=== PATIENT | male | born 1950 | race Caucasian/White ===

== ENCOUNTER 2017-01-11 12:16 | Inpatient (IN) | payer OTHER, MEDICARE ==
[~2017-01-11] VITALS: Ht 170.2 cm; Wt 69.8 kg
[2017-01-11] VITALS (9 sets, daily range): BP systolic 99–142; BP diastolic 62–84; PULSE 72–98; RESP 16–19; TEMP 98.4–98.7; O2SAT 96–100
[~2017-01-11 12:16] MED LIST: ALBU0.086 INH; ALBU8I INH; HYDR10SO PO; PROBCAP4 PO; ST JTAB PO; TAB-TAB PO; ZOFR4TAB3 SL
[2017-01-11] MEDS ORDERED: HYDR-3583 PO (12:36)
[2017-01-11] MEDS ORDERED: ASPI81TA11 PO (12:36)
[2017-01-11] MEDS ORDERED: B/P PILL PO (12:36)
[2017-01-11] MEDS ORDERED: ALBU0.63 NEB (12:36)
[2017-01-11] MEDS ORDERED: VENTAER INH (12:36)
[2017-01-11] MEDS ORDERED: SODIUM CHLORIDE 0.9% FLUSH 10 ML FLUSH IVF PRN (13:00)
[2017-01-11 13:03] LABS: AUTOMATED NEUTROPHIL # 4.1 TH/MM3 (1.8-7.7); BASOPHIL # 0.1 TH/MM3 (0-0.2); BASOPHIL % 0.9 % (0.0-2.0); EOSINOPHIL # 1.3 TH/MM3 (0-0.4); EOSINOPHIL % 16.4 % (0.0-4.0); HEMATOCRIT 36.4 % (39.0-51.0); HEMO FLAGS DIFF FINAL; LYMPH % 20.1 % (9.0-44.0); LYMPHOCYTE # 1.6 TH/MM3 (1.0-4.8); MEAN CELL VOLUME 89.9 FL (80.0-100.0); MEAN CORPUSCULAR HEMOGLOBIN 29.3 PG (27.0-34.0); MEAN CORPUSCULAR HGB CONC 32.5 % (32.0-36.0); MONO % 12.9 % (0.0-8.0); NEUT % 49.7 % (16.0-70.0); PLATELET COUNT 402 TH/MM3 (150-450); RED BLOOD COUNT 4.05 MIL/MM3 (4.50-5.90); RED CELL DISTRIBUTION WIDTH 13.9 % (11.6-17.2); WHITE BLOOD COUNT 8.1 TH/MM3 (4.0-11.0)
[2017-01-11 13:12] LABS: CHLORIDE 106 MEQ/L (98-107); SODIUM (NA) 141 MEQ/L (136-145)
[2017-01-11 13:15] LABS: ANION GAP 9 MEQ/L (5-15); BICARBONATE 25.9 MEQ/L (21.0-32.0); BLOOD UREA NITROGEN 13 MG/DL (7-18)
[2017-01-11 13:18] LABS: GLOMERULAR FILTRATION RATE 95 ML/MIN (>89)
[2017-01-11 13:19] LABS: POTASSIUM 4.7 MEQ/L (3.5-5.1)
--- NOTE | 2017-01-11 13:19 | PD ---
HPI Chief Complaint: Numbness/Tingling Time Seen by Provider: 12:33 Travel History International Travel<30 days: No Contact w/Intl Traveler<30days: No Traveled to known affect area: No History of Present Illness HPI The patient's 66 years old. He arrives with right arm weakness. It was first noticed 2 days ago. provides much of the history and notes the patient's quite stubborn and avoided coming to the ER until today. It seems as though the weakness has improved over the last several hours. He also notes right leg weakness at the time of assessment however had been walking over the past few days and including today. No difficulty with speech memory or mentation noted. Evidently he had a stroke in the past which had a complete spontaneous recovery. He denies drug or alcohol abuse. He smokes tobacco.patient takes a baby aspirin daily. PFSH Past Medical History Hx Anticoagulant Therapy: Yes (BABY ASA ) Cancer: Yes (PROSTATE, BLADDER) Cardiovascular Problems: Yes (HTN, CHOL LOOP RECORDER) COPD: Yes Cerebrovascular Accident: Yes (CVA) Diabetes: Yes (DIET CONTROLLED) Patient Takes Glucophage: No Diminished Hearing: No Herniated Disk: Yes Hypertension: Yes Musculoskeletal: Yes (CHRONIC BACK PAIN) Immunizations Current: Yes Radiation Therapy: Yes (PROSTATE) Tetanus Vaccination: < 5 Years Influenza Vaccination: No Past Surgical History Prostatectomy: Yes (BLADDER) Social History Alcohol Use: Yes (OCC) Tobacco Use: Yes (1/2 PPD) Substance Use: No Allergies-Medications (Allergen,Severity, Reaction): Coded Allergies: Lisinopril (Verified Allergy, Severe, 01/11/17) Reported Meds & Prescriptions Reported Meds & Active Scripts Active Reported Losartan (Losartan Potassium) 25 Mg Tab 25 Mg PO DAILY Hydrocodone-Acetaminophen 10-325 mg Tab 1 Tab PO Q8HR PRN Aspirin EC (Aspirin) 81 Mg Tabdr 81 Mg PO DAILY Albuterol Neb (Albuterol Sulfate) 0.63 Mg/3 Ml Neb 0.63 Mg NEB Q4HR NEB PRN Ventolin Hfa 18 GM Inh (Albuterol Sulfate) 90 Mcg/Act Aer 2 Puff INH Q4H PRN Review of Systems Except as stated in HPI: all other systems reviewed are Neg Physical Exam Narrative GENERAL: 66-year-old male well-nourished well-developed pleasant. SKIN: Focused skin assessment warm/dry. HEAD: Atraumatic. Normocephalic. EYES: Pupils equal and round. No scleral icterus. No injection or drainage. ENT: No nasal bleeding or discharge. Mucous membranes pink and moist. NECK: Trachea midline. No JVD. CARDIOVASCULAR: Regular rate and rhythm. No murmur appreciated. RESPIRATORY: No accessory muscle use. Clear to auscultation. Breath sounds equal bilaterally. GASTROINTESTINAL: Abdomen soft, non-tender, nondistended. Hepatic and splenic margins not palpable. MUSCULOSKELETAL: No obvious deformities. No clubbing. No cyanosis. No edema. NEUROLOGICAL: Speech is normal. The cranial nerves III through XII appear normal. Memory mentation appear normal. While elevating the right leg there is a very gradual drift downward however he is able to keep it elevated for longer than 10 seconds. The left leg does not drift. With assessment of the upper extremity motor function there is mild pronation and drift of the right side compared to the left. The handgrip is equal bilaterally. PSYCHIATRIC: Appropriate mood and affect; insight and judgment normal. Data Data Last Documented VS Vital Signs Date Time Temp Pulse Resp B/P Pulse Ox O2 Delivery O2 Flow Rate FiO2 01/11/17 15:04 80 18 124/76 98 Room Air 01/11/17 12:18 98.7 Vital signs reviewed Orders Electrocardiogram (01/11/17 12:51) Complete Blood Count With Diff (01/11/17 12:51) Basic Metabolic Panel (Bmp) (01/11/17 12:51) Drug Screen, Random Urine (01/11/17 12:51) Ct Brain W/O Iv Contrast(Rout) (01/11/17 12:51) Ecg Monitoring (01/11/17 12:51) Iv Access Insert/Monitor (01/11/17 12:51) Oximetry (01/11/17 12:51) Blood Glucose (01/11/17 12:51) Sodium Chloride 0.9% Flush (Ns Flush) (01/11/17 13:00) Mri Brain W/O Contrast (01/11/17 13:05) Mra Brain W/O Contrast (Cow) (01/11/17 13:05) Mra Carotids W Contrast (01/11/17 13:05) Alcohol (Ethanol) (01/11/17 12:40) Gadodiamide Pf Inj (Omniscan Pf Inj) (01/11/17 14:37) Clopidogrel (Plavix) (01/11/17 16:15) Consult Cardiology (01/11/17 ) Admit Order (Ed Use Only) (01/11/17 16:16) Labs Laboratory Tests Test 01/11/17 01/11/17 12:40 14:00 White Blood Count 8.1 TH/MM3 Red Blood Count 4.05 MIL/MM3 Hemoglobin 11.9 GM/DL Hematocrit 36.4 % Mean Corpuscular Volume 89.9 FL Mean Corpuscular Hemoglobin 29.3 PG Mean Corpuscular Hemoglobin 32.5 % Concent Red Cell Distribution Width 13.9 % Platelet Count 402 TH/MM3 Mean Platelet Volume 8.1 FL Neutrophils (%) (Auto) 49.7 % Lymphocytes (%) (Auto) 20.1 % Monocytes (%) (Auto) 12.9 % Eosinophils (%) (Auto) 16.4 % Basophils (%) (Auto) 0.9 % Neutrophils # (Auto) 4.1 TH/MM3 Lymphocytes # (Auto) 1.6 TH/MM3 Monocytes # (Auto) 1.0 TH/MM3 Eosinophils # (Auto) 1.3 TH/MM3 Basophils # (Auto) 0.1 TH/MM3 CBC Comment DIFF FINAL Differential Comment Sodium Level 141 MEQ/L Potassium Level 4.7 MEQ/L Chloride Level 106 MEQ/L Carbon Dioxide Level 25.9 MEQ/L Anion Gap 9 MEQ/L Blood Urea Nitrogen 13 MG/DL Creatinine 0.81 MG/DL Estimat Glomerular Filtration 95 ML/MIN Rate Random Glucose 136 MG/DL Calcium Level 9.4 MG/DL Ethyl Alcohol Level LESS THAN 3 MG/DL Urine Opiates Screen POS Urine Barbiturates Screen NEG Urine Amphetamines Screen NEG Urine Benzodiazepines Screen NEG Urine Cocaine Screen NEG Urine Cannabinoids Screen NEG MDM Medical Decision Making Medical Screen Exam Complete: Yes Emergency Medical Condition: Yes Medical Record Reviewed: Yes Differential Diagnosis Stroke, TIA, spinal stenosis and/or arthritic type disc disease Narrative Course Head CT reveals no acute disease EKG reveals a sinus rhythm of 81 with a left anterior fascicular block pattern CBC & BMP Diagram 01/11/17 12:40 Last 24 hours Impressions Neck Magnetic Resonance Angiography 01/11/17 8775 Signed Impressions: Service Date/Time: Wednesday, January 11, 2017 14:37 - CONCLUSION: 1. Moderate stenosis at the distal left carotid bulb at the proximal left internal carotid artery. It appears the lumen is narrowed by at least 50%%. 2. Possible stenosis at the origin of the right vertebral artery. 3. These areas could be better characterize with a CTA. Artis Rogers MD Head Magnetic Resonance Angiography 01/11/17 1303 Signed Impressions: Service Date/Time: Wednesday, January 11, 2017 14:37 - CONCLUSION: Normal examination. Artis Rogers MD Brain MRI 01/11/17 1305 Signed Impressions: Service Date/Time: Wednesday, January 11, 2017 14:37 - CONCLUSION: 1. Small area of acute infarction in the medial left frontoparietal region in the paraventricular area. 2. Atrophy. The ventricles appear to be dilated out of proportion to the sulcal widening which raises the possibility of normal pressure hydrocephalus. 3. Increased signal throughout the cerebral white matter likely related to diffuse small vessel ischemic demyelination change. Artis Rogers MD Head CT 01/11/17 1253 Signed Impressions: Service Date/Time: Wednesday, January 11, 2017 13:06 - CONCLUSION: Stable CT scan of the brain compared to 2014. Gwyn Noland MD d/w Dr Anne: admission w neuro and cardiology consult, start plavix. d/w Dr Rausch for [facility]. Critical Care Narrative Aggregate critical care time was 35 minutes. Time to perform other separately billable procedures was not included in the critical care time. My time did not include minutes spent treating any other patients simultaneously or on activities that did not directly contribute to the patient's treatment. The services I provided to this patient were to treat and/or prevent clinically significant deterioration that could result in: stroke, permanent neurologic injury I provided critical care services requiring my management, as noted below: Chart data review, documentation time, medication orders and management, vital sign assessments/reviewing monitor data, ordering and reviewing lab tests, ordering and interpreting/reviewing x-rays and diagnostic studies, care of the patient and discussion of the patient with the admitting physicians. Diagnosis Primary Impression: CVA (cerebral vascular accident) Qualified Code: I63.9 - Cerebrovascular accident (CVA), unspecified mechanism Admitting Information Admitting Physician Requests: Observation Zach Washburn MD Jan 11, 2017 13:19
--- NOTE | 2017-01-11 13:24 | RADRPT ---
EXAM DATE/TIME: 01/11/2017 13:06 [facility] COMPARISON: CT BRAIN W/O CONTRAST, February 16, 2015, 11:12. INDICATIONS : Right upper extremity weakness. RADIATION DOSE: 62.11 CTDIvol (mGy) MEDICAL HISTORY : Cerebrovascular disease. Chronic obstructive pulmonary disease. Carcinoma, prostate.Bladder cancer. H ypertension. Anticoagulant therapy. SURGICAL HISTORY : None. ENCOUNTER: Initial ACUITY: 2 days PAIN SCALE: 0/10 LOCATION: cranial TECHNIQUE: Multiple contiguous axial images were obtained of the head. Using automated exposure control and adj ustment of the mA and/or kV according to patient size, radiation dose was kept as low as reasonably a chievable to obtain optimal diagnostic quality images. DICOM format image data is available electro nically for review and comparison. FINDINGS: CEREBRUM: The ventricles are prominent but stable compared to 2014. There is bilateral cortical atrophy. There is stable chronic white matter changes.. No evidence of midline shift, mass lesion, hemorrhage or ac brenna infarction. No extra-axial fluid collections are seen. POSTERIOR FOSSA: The cerebellum and brainstem are intact. The 4th ventricle is midline. The cerebellopontine angle i s unremarkable. EXTRACRANIAL: The visualized portion of the orbits is intact. SKULL: The calvaria is intact. No evidence of skull fracture. CONCLUSION: Stable CT scan of the brain compared to 2014. Gwyn Noland MD on January 11, 2017 at 13:21 Board Certified Radiologist. This report was verified electronically.
[2017-01-11 14:19] LABS: AMPHETAMINE, URINE NEG (NEG); BARBITURATES, URINE NEG (NEG); COCAINE, URINE NEG (NEG)
[2017-01-11] MEDS ORDERED: GADODIAMIDE PF 287 MG/ML 20 ML VIAL (for RAD MRI) IV ONE (14:37)
[2017-01-11] MEDS ORDERED: LOSA25TA PO (14:37)
--- NOTE | 2017-01-11 15:16 | RADRPT ---
EXAM DATE/TIME: 01/11/2017 14:37 [facility] COMPARISON: CT BRAIN W/O CONTRAST, January 11, 2017, 13:06. INDICATIONS : Right sided weakness. MEDICAL HISTORY : Chronic obstructive pulmonary disease. Hypertension. Carcinoma, prostate. SURGICAL HISTORY : Prostatectomy. ENCOUNTER: Initial ACUITY: 1 day PAIN SCORE: 0/10 LOCATION: cranial TECHNIQUE: Multiplanar, multisequence MRI of the brain was performed without contrast. FINDINGS: CEREBRUM: The ventricles and cortical sulci are widened. It appears the ventricles are widened out of proportio n to the sulcal widening. There is a small 1 cm area of acute infarction seen in the left paraventric ular frontoparietal region. No evidence of midline shift, mass lesion, or hemorrhage. No extraaxial fluid collections are seen. The pituitary gland and suprasellar cistern are normal in configuration . WHITE MATTER: There is increased signal seen throughout the cerebral white matter. POSTERIOR FOSSA: The cerebellum and brainstem are intact. The 4th ventricle is midline. The cerebellopontine angle is unremarkable. The cerebellar tonsils are normal in position. DIFFUSION IMAGING: Again noted is the 1 cm area of acute infarction at the left paraventricular frontoparietal region. EXTRACRANIAL: The visualized portions of the orbits and paranasal sinuses are unremarkable. CONCLUSION: 1. Small area of acute infarction in the medial left frontoparietal region in the paraventricular are a. 2. Atrophy. The ventricles appear to be dilated out of proportion to the sulcal widening which raises the possibility of normal pressure hydrocephalus. 3. Increased signal throughout the cerebral white matter likely related to diffuse small vessel ische eric demyelination change. Artis Rogers MD on January 11, 2017 at 15:09 Board Certified Radiologist. This report was verified electronically.
--- NOTE | 2017-01-11 15:32 | RADRPT ---
EXAM DATE/TIME: 01/11/2017 14:37 [facility] COMPARISON: No previous studies available for comparison. INDICATIONS : Right sided weakness. MEDICAL HISTORY : Carcinoma, prostate. Chronic obstructive pulmonary disease. Hypertension. SURGICAL HISTORY : Prostatectomy. ENCOUNTER: Initial ACUITY: 1 day PAIN SCORE: 0/10 LOCATION: cranial Please note a normal MRA of the brain does not entirely exclude the possibility of a small aneurysm, nor the possibility of distal intracranial vessel disease. TECHNIQUE: 3D time of flight MRA was performed. Source images, multiplanar STS MIP, and 3D volume MIP reconstru ctions were reviewed. FINDINGS: There is excellent visualization of the major intracranial arteries out to the second-order branch ve ssels. There is no evidence for aneurysm, vessel truncation or stenosis, and no evidence for vascula r malformation. CONCLUSION: Normal examination. Artis Rogers MD on January 11, 2017 at 15:29 Board Certified Radiologist. This report was verified electronically.
--- NOTE | 2017-01-11 15:38 | RADRPT ---
EXAM DATE/TIME: 01/11/2017 14:37 [facility] COMPARISON: No previous studies available for comparison. INDICATIONS : Right side weakness. CONTRAST: 20 cc Omniscan (gadodiamide) IV MEDICAL HISTORY : Carcinoma, prostate. Chronic obstructive pulmonary disease. Hypertension. SURGICAL HISTORY : Prostatectomy. ENCOUNTER: Initial ACUITY: 1 day PAIN SCORE: 0/10 LOCATION: cranial Percent stenosis is calculated using the diameter of the stenotic region over the diameter of the nor mal distal internal carotid artery. TECHNIQUE: Bolus infused MRA of the extracranial circulation was performed using a neurovascular coil. Post pro cessing was performed including rotating subvolume maximum intensity projections of each carotid arpita ry, rotating full volume maximum intensity projections of both carotid arteries, sagittal and coronal sliding thin slab reformations of each carotid artery, and left oblique sliding thin slab reformatio n through the aortic arch to include the origin of the arch branch vessels. FINDINGS: AORTIC ARCH: There is a three vessel origin of the great vessels from the aorta. No evidence of ostial narrowing. RIGHT CAROTID: The common carotid artery is intact. The carotid bulb has a normal configuration without ulceration or narrowing. The internal carotid artery lumen is smooth without stenosis. The external carotid ar álvaro is intact. LEFT CAROTID: The common carotid artery is intact. There appears to be a moderate stenosis at the distal carotid b ulb region. The remaining aspect of the left internal carotid artery appears normal. The external car otid artery is intact. VERTEBRALS: The vertebral arteries have a symmetric diameter. No signal is seen at the origin of the right verte bral artery raising the possibility of stenosis in this region. This area is susceptibility to artifa ct however. CONCLUSION: 1. Moderate stenosis at the distal left carotid bulb at the proximal left internal carotid artery. It appears the lumen is narrowed by at least 50%. 2. Possible stenosis at the origin of the right vertebral artery. 3. These areas could be better characterize with a CTA. Artis Rogers MD on January 11, 2017 at 15:30 Board Certified Radiologist. This report was verified electronically.
[2017-01-11] MEDS ORDERED: CLOPIDOGREL 75 MG TAB PO ONE (16:15)
[2017-01-11] MEDS ORDERED: DEXTROSE 50% IN WATER 50 ML VIAL(D50) IV PUSH PRN (16:30)
[2017-01-11] MEDS ORDERED: RESP: ALBUTEROL 2.5 MG/IPRATROPIUM 0.5 MG NEB (PRN) NEB (16:30)
[2017-01-11] MEDS ORDERED: SODIUM CHLORIDE 0.9% FLUSH 5 ML FLUSH IV FLUSH PRN (16:30)
[2017-01-11] MEDS ORDERED: ENALAPRILAT 1.25 MG/ML VIAL IV PRN (16:30)
--- NOTE | 2017-01-11 16:36 | HHI.HP ---
[facility] Diagnosis CVA, ?Arrhythmia Diagnoses: (1) CVA (cerebral vascular accident) (2) Diabetes mellitus, type 2 (3) Hypertension Chief Complaint: Right arm weakness Travel History International Travel<30 Days: No Contact w/Intl Traveler <30 Da: No Traveled to Known Affected Are: No History of Present Illness 66-year-old male with a history of diabetes type 2, hypertension, prior history of CVA came to the ED for evaluation of 2 day history of right arm weakness slight right lower extremity weakness and some slurring speech. Patient states, yesterday when he woke up from sleep around 6 AM his right arm was noticed to be heavy and numbed, which patient was unable to lift. However patient states this improved this morning after he woke up, but it is still weaker than the left one. He was also noted per his 's account to have a funny speech. He also reported some right lower extremity weakness. Patient has an implanted loop recorder, states several years ago he was having episode of syncope. Otherwise currently denies any chest pain or shortness of breath. Brain MRI was abnormal Review of Systems Except as stated in HPI: all other systems reviewed are Neg Past Family Social History Past Medical History Cancer: Yes (PROSTATE, BLADDER) Cardiovascular Problems: Yes (HTN, CHOL LOOP RECORDER) COPD: Yes Cerebrovascular Accident: Yes (CVA) Diabetes: Yes (DIET CONTROLLED) Herniated Disk: Yes Hypertension: Yes Musculoskeletal: Yes (CHRONIC BACK PAIN) Radiation Therapy: Yes (PROSTATE) Past Surgical History Prostatectomy Reported Medications [B/P Pill] 1 Tab PO DAILY Hydrocodone-Acetaminophen 10-325 mg Tab 1 Tab PO Q8HR PRN Aspirin EC (Aspirin) 81 Mg Tabdr 81 Mg PO DAILY Albuterol Neb (Albuterol Sulfate) 0.63 Mg/3 Ml Neb 0.63 Mg NEB Q4HR NEB PRN Ventolin Hfa 18 GM Inh (Albuterol Sulfate) 90 Mcg/Act Aer 2 Puff INH Q4H PRN Allergies: Coded Allergies: Lisinopril (Verified Allergy, Severe, 01/11/17) Family History History positive for hypertension, diabetes Social History Alcohol Use: Yes (OCC) Tobacco Use: Yes (1/2 PPD) Substance Use: No Physical Exam Vital Signs Vital Signs Date Time Temp Pulse Resp B/P Pulse Ox O2 Delivery O2 Flow Rate FiO2 01/11/17 16:23 78 18 142/84 97 Room Air 01/11/17 15:04 80 18 124/76 98 Room Air 01/11/17 14:03 74 18 99/62 98 Room Air 01/11/17 13:01 97 Room Air 01/11/17 12:21 91 100 Room Air 01/11/17 12:18 98.7 98 16 122/75 100 Physical Exam GENERAL: This is a well-nourished, well-developed patient, in no apparent distress. SKIN: No rashes, ecchymoses or lesions. Cool and dry. HEAD: Atraumatic. Normocephalic. No temporal or scalp tenderness. EYES: Pupils equal round and reactive. Extraocular motions intact. No scleral icterus. No injection or drainage. ENT: Nose without bleeding, purulent drainage or septal hematoma. Throat without erythema, tonsillar hypertrophy or exudate. Uvula midline. Airway patent. NECK: Trachea midline. No JVD or lymphadenopathy. Supple, nontender, no meningeal signs. CARDIOVASCULAR: Regular rate and rhythm without murmurs, gallops, or rubs. RESPIRATORY: Clear to auscultation. Breath sounds equal bilaterally. No wheezes , rales, or rhonchi. GASTROINTESTINAL: Abdomen soft, non-tender, nondistended. No hepato-splenomegaly , or palpable masses. No guarding. MUSCULOSKELETAL: Extremities without clubbing, cyanosis, or edema. No joint tenderness, effusion, or edema noted. No calf tenderness. Negative Homans sign bilaterally. NEUROLOGICAL: Awake and alert. Cranial nerves II through XII intact. Motor and sensory grossly within normal limits. 3/5 RUE, 4/5 RLE, 5/5 LUE and LLE. Laboratory Laboratory Tests Test 01/11/17 01/11/17 12:40 14:00 White Blood Count 8.1 Red Blood Count 4.05 Hemoglobin 11.9 Hematocrit 36.4 Mean Corpuscular Volume 89.9 Mean Corpuscular Hemoglobin 29.3 Mean Corpuscular Hemoglobin 32.5 Concent Red Cell Distribution Width 13.9 Platelet Count 402 Mean Platelet Volume 8.1 Neutrophils (%) (Auto) 49.7 Lymphocytes (%) (Auto) 20.1 Monocytes (%) (Auto) 12.9 Eosinophils (%) (Auto) 16.4 Basophils (%) (Auto) 0.9 Neutrophils # (Auto) 4.1 Lymphocytes # (Auto) 1.6 Monocytes # (Auto) 1.0 Eosinophils # (Auto) 1.3 Basophils # (Auto) 0.1 CBC Comment DIFF FINAL Differential Comment Sodium Level 141 Potassium Level 4.7 Chloride Level 106 Carbon Dioxide Level 25.9 Anion Gap 9 Blood Urea Nitrogen 13 Creatinine 0.81 Estimat Glomerular Filtration 95 Rate Random Glucose 136 Calcium Level 9.4 Ethyl Alcohol Level LESS THAN 3 Urine Opiates Screen POS Urine Barbiturates Screen NEG Urine Amphetamines Screen NEG Urine Benzodiazepines Screen NEG Urine Cocaine Screen NEG Urine Cannabinoids Screen NEG Result Diagram: 01/11/17 1240 01/11/17 1240 Imaging Last Impressions Neck Magnetic Resonance Angiography 01/11/17 1305 Signed Impressions: Service Date/Time: Wednesday, January 11, 2017 14:37 - CONCLUSION: 1. Moderate stenosis at the distal left carotid bulb at the proximal left internal carotid artery. It appears the lumen is narrowed by at least 50%%. 2. Possible stenosis at the origin of the right vertebral artery. 3. These areas could be better characterize with a CTA. Artis Rogers MD Head Magnetic Resonance Angiography 01/11/17 1305 Signed Impressions: Service Date/Time: Wednesday, January 11, 2017 14:37 - CONCLUSION: Normal examination. Artis Rogers MD Brain MRI 01/11/17 1305 Signed Impressions: Service Date/Time: Wednesday, January 11, 2017 14:37 - CONCLUSION: 1. Small area of acute infarction in the medial left frontoparietal region in the paraventricular area. 2. Atrophy. The ventricles appear to be dilated out of proportion to the sulcal widening which raises the possibility of normal pressure hydrocephalus. 3. Increased signal throughout the cerebral white matter likely related to diffuse small vessel ischemic demyelination change. Artis Rogers MD Head CT 01/11/17 1251 Signed Impressions: Service Date/Time: Wednesday, January 11, 2017 13:06 - CONCLUSION: Stable CT scan of the brain compared to 2015. Gwyn Noland MD Assessment and Plan Problem List: (1) CVA (cerebral vascular accident) ICD Code: I63.9 Status: Acute Assessment and Plan 66-year-old man with Acute CVA: Treatment per stroke protocol -Patient is outside of window zone for treatment with TPA -Continue with aspirin -Start statin therapy -NIHSS, Neuro checks, Monitor on telemetry -PT/OT/ST evaluations, consult rehab medicine -allow permissive HTN, IV Vasotec and IV labetalol if SBP >220 -Check lipid profile and HgbA1c -Check carotid U/S -Head CT 01/11/17 noted and review by me and Stable CT scan of the brain compared to 2015 -Brain MRI 01/11/17 noted and review by me with finding of Small area of acute infarction in the medial left frontoparietal region in the paraventricular area. -Brain MRA 01/11/17 noted and reviewed by me with normal examination -Neck MRA 01/11/17 noted and review by me with finding of Moderate stenosis at the distal left carotid bulb at the proximal left internal carotid artery. Possible stenosis at the origin of the right vertebral artery. -Check echocardiogram -Neurology consulted History of hypertension: We will allow for permissive hypertension History of arrhythmias ,syncope Cardiology consultation pending as patient with history of implanted loop recorder 2-D echo pending Nicotinic dependence: Counseled to quit, place nicotine patch DVT prophylaxis: Bilateral SCDs GI prophylaxis: PPI Code Status Full code Discussed Condition With Patient, ED physician Physician Certification 2 Midnight Certification Type: Admission for Inpatient Services Order for Inpatient Services The services are ordered in accordance with Medicare regulations or non- Medicare payer requirements, as applicable. In the case of services not specified as inpatient-only, they are appropriately provided as inpatient services in accordance with the 2-midnight benchmark. Estimated LOS (days): 2 days is the estimated time the patient will need to remain in the hospital, assuming treatment plan goals are met and no additional complications. Post-Hospital Plan: Not yet determined Problem Qualifiers (1) CVA (cerebral vascular accident): Qualified Code: I63.9 - Cerebrovascular accident (CVA), unspecified mechanism Roshan Rausch MD Jan 11, 2017 16:36
[2017-01-11] MEDS ORDERED: GLUCAGON 1 MG/ML VIAL OTHER PRN (16:45)
[2017-01-11] MEDS ORDERED: DEXTROSE 50% IN WATER 50 ML VIAL(D50) IV PRN (16:45)
[2017-01-11] MEDS: ENOXAPARIN SODIUM 30 MG/0.3 ML SYRINGE SQ SCH (18:50)
[2017-01-11] MEDS: NICOTINE 21 MG/24 HR PATCH T-DERMAL SCH (18:50)
[2017-01-11] MEDS: SODIUM CHLORIDE 0.9% FLUSH 5 ML FLUSH IV FLUSH SCH (21:00)
[2017-01-11] MEDS: INSULIN ASPART SUPPLEMENTAL SCALE SQ SCH (21:00)
[2017-01-11] MEDS: REMOVE OLD PATCH T-DERMAL SCH (21:00)
[2017-01-11] MEDS: ATORVASTATIN 10 MG TAB PO SCH (21:36)
[2017-01-12] VITALS (9 sets, daily range): BP systolic 144–164; BP diastolic 80–97; PULSE 69–78; RESP 18–20; TEMP 95.9–97.6; O2SAT 93–99
[2017-01-12] MEDS: INSULIN ASPART SUPPLEMENTAL SCALE SQ SCH ×4 (05:49→20:25)
[2017-01-12 06:16] LABS: ALKALINE PHOSPHATASE 59 U/L (45-117); ALT (GPT) 38 U/L (12-78); ANION GAP 8 MEQ/L (5-15); AST (GOT) 30 U/L (15-37); BICARBONATE 26.4 MEQ/L (21.0-32.0); BLOOD UREA NITROGEN 13 MG/DL (7-18); CHLORIDE 110 MEQ/L (98-107); GLOMERULAR FILTRATION RATE 111 ML/MIN (>89); POTASSIUM 3.6 MEQ/L (3.5-5.1); SODIUM (NA) 144 MEQ/L (136-145); TOTAL BILIRUBIN ADULT 0.4 MG/DL (0.2-1.0)
[2017-01-12] MEDS: ASPIRIN 325 MG TAB PO SCH (08:19)
[2017-01-12] MEDS: SODIUM CHLORIDE 0.9% FLUSH 5 ML FLUSH IV FLUSH SCH ×2 (08:20→20:15)
[2017-01-12] MEDS: NICOTINE 21 MG/24 HR PATCH T-DERMAL SCH (08:20)
[2017-01-12 09:23] LABS: HDL CHOLESTEROL 64.5 MG/DL (40.0-60.0); LDL CHOLESTEROL 72 MG/DL (0-99)
--- NOTE | 2017-01-12 11:33 | HHI.PR ---
Subjective Remarks Follow-up CVA 01/12/17-patient seen and examined, reports improvement of right upper extremity weakness and numbness or denies any acute event overnight. Afebrile. Taking by mouth without any competition nausea and vomiting. Objective Vitals Vital Signs Date Time Temp Pulse Resp B/P Pulse Ox O2 Delivery O2 Flow Rate FiO2 01/12/17 09:18 95 21 01/12/17 08:03 96.1 73 19 164/97 95 01/12/17 05:20 97.6 78 18 144/91 93 01/12/17 00:00 97.4 72 20 149/89 96 01/11/17 21:00 98 21 01/11/17 21:00 79 01/11/17 20:00 98.4 76 19 129/79 96 01/11/17 17:38 100 21 01/11/17 17:03 72 16 119/73 100 Room Air 01/11/17 16:23 78 18 142/84 97 Room Air 01/11/17 15:04 80 18 124/76 98 Room Air 01/11/17 14:03 74 18 99/62 98 Room Air 01/11/17 13:01 97 Room Air 01/11/17 12:21 91 100 Room Air 01/11/17 12:18 98.7 98 16 122/75 100 I/O 01/11/17 01/11/17 01/11/17 01/12/17 01/12/17 01/12/17 06:59 14:59 22:59 06:59 14:59 22:59 Intake Total 240 ml Output Total 100 ml Balance -100 ml 240 ml Intake Oral 240 ml Output Stool Total 100 ml # Voids 2 2 # Bowel Movements 0 Result Diagram: 01/11/17 1240 01/12/17 0520 Imaging Last Impressions Neck Magnetic Resonance Angiography 01/11/17 1305 Signed Impressions: Service Date/Time: Wednesday, January 11, 2017 14:37 - CONCLUSION: 1. Moderate stenosis at the distal left carotid bulb at the proximal left internal carotid artery. It appears the lumen is narrowed by at least 50%%. 2. Possible stenosis at the origin of the right vertebral artery. 3. These areas could be better characterize with a CTA. Artis Rogers MD Head Magnetic Resonance Angiography 01/11/17 1301 Signed Impressions: Service Date/Time: Wednesday, January 11, 2017 14:37 - CONCLUSION: Normal examination. Artis Rogers MD Brain MRI 01/11/17 1305 Signed Impressions: Service Date/Time: Wednesday, January 11, 2017 14:37 - CONCLUSION: 1. Small area of acute infarction in the medial left frontoparietal region in the paraventricular area. 2. Atrophy. The ventricles appear to be dilated out of proportion to the sulcal widening which raises the possibility of normal pressure hydrocephalus. 3. Increased signal throughout the cerebral white matter likely related to diffuse small vessel ischemic demyelination change. Artis Rogers MD Head CT 01/11/17 1251 Signed Impressions: Service Date/Time: Wednesday, January 11, 2017 13:06 - CONCLUSION: Stable CT scan of the brain compared to 2014. Gwyn Noland MD Objective Remarks GENERAL: NAD SKIN: Warm and dry. HEAD: Normocephalic. EYES: No scleral icterus. No injection or drainage. NECK: Supple, trachea midline. No JVD or lymphadenopathy. CARDIOVASCULAR: Regular rate and rhythm without murmurs, gallops, or rubs. RESPIRATORY: Breath sounds equal bilaterally. No accessory muscle use. GASTROINTESTINAL: Abdomen soft, non-tender, nondistended. MUSCULOSKELETAL: No cyanosis, or edema. 4/5 RUE, 5/5 RLE; 5/5 LUE, LLE BACK: Nontender without obvious deformity. No CVA tenderness. A/P Problem List: (1) CVA (cerebral vascular accident) ICD Code: I63.9 Status: Acute (2) Diabetes mellitus, type 2 ICD Code: E11.9 Status: Acute (3) Hypertension ICD Code: I10 Status: Acute Assessment and Plan 66-year-old man with Acute CVA: Treatment per stroke protocol -Patient on admission was outside of window zone for treatment with TPA -Continue with aspirin -Continue statin therapy -NIHSS, Neuro checks, Monitor on telemetry -PT/OT/ST evaluations, consult rehab medicine -allow permissive HTN, IV Vasotec and IV labetalol if SBP >220 -LDL 72 and HgbA1c pending -Check carotid U/S -Head CT 01/11/17 noted and review by me and Stable CT scan of the brain compared to 2014 -Brain MRI 01/11/17 noted and review by me with finding of Small area of acute infarction in the medial left frontoparietal region in the paraventricular area. -Brain MRA 01/11/17 noted and reviewed by me with normal examination -Neck MRA 01/11/17 noted and review by me with finding of Moderate stenosis at the distal left carotid bulb at the proximal left internal carotid artery. Possible stenosis at the origin of the right vertebral artery. -Check echocardiogram -Neurology consultation pending History of hypertension: Continue with permissive hypertension History of arrhythmias ,syncope Cardiology consultation pending as patient with history of implanted loop recorder 2-D echo pending Nicotinic dependence: Counseled to quit, tx with nicotine patch DVT prophylaxis: Bilateral SCDs GI prophylaxis: PPI Problem Qualifiers (1) CVA (cerebral vascular accident): Qualified Code: I63.9 - Cerebrovascular accident (CVA), unspecified mechanism Roshan Rausch MD Jan 12, 2017 11:33
--- NOTE | 2017-01-12 11:37 | ECHRPT ---
Indication: cva/tia CONCLUSIONS The left ventricular systolic function is severely reduced with an estimated ejection fraction in th e range of 30-35%. Global hypokinesis. There is assymetric septal hypertrophy. Mild mitral valve regurgitation. BP: / HR: Rhythm: MEASUREMENTS (Male / Female) Normal Values Technical Quality:Technically difficult study 2D ECHO LV Diastolic Diameter PLAX 5.2 cm 4.2 - 5.9 / 3.9 - 5.3 cm LV Systolic Diameter PLAX 4.6 cm IVS Diastolic Thickness 1.5 cm 0.6 - 1.0 / 0.6 - 0.9 cm LVPW Diastolic Thickness 1.0 cm 0.6 - 1.0 / 0.6 - 0.9 cm LV Relative Wall Thickness 0.5 RV Internal Dim ED PLAX 3.2 cm M-MODE Aortic Root Diameter MM 3.3 cm LA Systolic Diameter MM 3.3 cm LA Ao Ratio MM 1.0 AV Cusp Separation MM 2.0 cm DOPPLER Mitral E Point Velocity 35.5 cm/s Mitral A Point Velocity 59.7 cm/s Mitral E to A Ratio 0.6 LV E' Lateral Velocity 4.1 cm/s Mitral E to LV E' Lateral Ratio 8.7 LV E' Septal Velocity 5.3 cm/s Mitral E to LV E' Septal Ratio 6.7 FINDINGS LEFT VENTRICLE Normal left ventricular size. There is assymetric septal hypertrophy. The left ventricular systolic function is severely reduced with an estimated ejection fraction in th e range of 30-35%. Global hypokinesis. RIGHT VENTRICLE Normal right ventricular size and systolic function. LEFT ATRIUM The left atrial size is normal. RIGHT ATRIUM The right atrial size is normal. ATRIAL SEPTUM The interatrial septum not well visualized. AORTA The aortic root and proximal ascending aorta are normal in size on limited imaging. MITRAL VALVE Structurally normal mitral valve. Mild mitral valve regurgitation. AORTIC VALVE Trileaflet aortic valve. No aortic valve regurgitation. TRICUSPID VALVE Structurally normal tricuspid valve. There is trace tricuspid valve regurgitation. PULMONARY VALVE The pulmonary valve is not well visualized. VESSELS IVC 2.3 PERICARDIUM No pericardial effusion. Lukasz Washburn DO (Electronically Signed) Final Date:12 January 2017 11:36
--- NOTE | 2017-01-12 11:57 | MB ---
cc: LUKASZ FERRELL DO DATE OF CONSULTATION: January 12, 2017 REASON FOR CONSULTATION CVA, possible arrhythmia. HISTORY OF PRESENT ILLNESS Bret Simon is a pleasant 66-year-old male who presented to [facility] due to two day history of right arm weakness, slight right lower extremity weakness and some slurred speech. The patient states that he woke up the day before arriving to the emergency room with right arm heaviness and numbness for which the patient was unable to lift his arm. He also states that during this he noticed some right leg weakness. Per his 's account he was unable to speak very well. He states that this steadily improved over the morning. He decided that he should come to the emergency room. On arrival he was worked up for a possible CVA and was out of the time range for possible TPA. In seeing him today he states that he feels fine, denying chest pain, shortness of breath or focal deficits. He states that his right arm is still slightly weak but overall his right leg is back to normal. Lastly, he states that he had a loop recorder [facility] few years ago as he had a few episodes of syncope. He states that this has been followed regularly every 6 months and he was told that he had an irregular heart rate with the top chamber beating more than the bottom chamber. He was never discussed with previously about anticoagulation other than a baby aspirin. PAST MEDICAL HISTORY 1. Prostate cancer. 2. Bladder cancer. 3. Hypertension. 4. Hyperlipidemia. 5. COPD. 6. History of a CVA (the patient had a previous left-sided CVA believed to be around 10 years ago per the patient and did not come to the hospital for). 7. Diet-controlled diabetes. PAST SURGICAL HISTORY Prostatectomy. ALLERGIES LISINOPRIL. MEDICATIONS 1. Losartan 25 mg daily. 2. Albuterol 2 puffs every 4 hours as needed. 3. Aspirin 81 mg daily. 4. Hydrocodone / acetaminophen 10/325 mg every 8 hours as needed for pain. FAMILY HISTORY Denies premature coronary artery disease or sudden cardiac within the family. SOCIAL HISTORY Denies substance abuse. Positive for occasional alcohol. Does smoke half a pack of cigarettes a day. REVIEW OF SYSTEMS 14-systems were reviewed including osteopathic pertinent positives and negatives above, otherwise negative. PHYSICAL EXAMINATION VITAL SIGNS: Temperature 96.1, heart rate 73, blood pressure 164/97, respirations 20, pulse ox 95% on room air. GENERAL: The patient appears well, in no acute distress, alert awake and oriented x3. HEENT: Extraocular muscles intact. Mucous membranes moist. NECK: Supple. No JVD at 45 degrees. No carotid bruits heard bilaterally. Carotid upstroke is brisk in nature. HEART: Heart is regular rate and rhythm. Positive first and second heart sounds with no murmurs, gallops or rubs. LUNGS: Clear to auscultation bilaterally. No wheezes, rales or rhonchi. ABDOMEN: Soft, nontender, nondistended. No organomegaly noted. EXTREMITIES: Show no clubbing, cyanosis or edema. NEUROLOGIC: The patient has mild weakness in his right arm otherwise no focal deficits. SKIN: Warm, dry and intact. OSTEOPATHIC: No kyphoscoliosis, lordosis or paraspinal tender points. LABORATORY FINDINGS Hemoglobin 11.9, hematocrit 36.4, platelets 402. Potassium 3.6, BUN 13, creatinine 0.71, total cholesterol 154, LDL 72, HDL 64.5, triglycerides 86. ELECTROCARDIOGRAM Electrocardiogram (January 11, 2017 at 1301) sinus rhythm, left anterior fascicular block, no acute ST-T wave changes. IMPRESSION 1. Acute CVA with mild residual right upper extremity weakness. 2. History of hypertension. 3. History of possible arrhythmias with syncope for which a loop recorder was placed. 4. Tobacco abuse. RECOMMENDATIONS 1. Mr. Simon appears to have presented with acute CVA for which he has mostly resolved his symptoms other than mild right upper extremity weakness. 2. I agree with consulting neurology for their further recommendations for his CVA. 3. As far as his loop recorder goes, he did have an MRI which possibly could erase the data, I did ask the technical sales representative from [employer] to look back at old data from his previous interrogations as well as interrogate it and see if any arrhythmias were noted. Per the patient, it sounds as if he does have some kind of SVT which may be atrial fibrillation in nature although, it has never been discussed with him about consideration of anticoagulation which I find interesting. At this time we will hold off on anticoagulation as I have no definitive showing of atrial fibrillation. 4. Will check a 2-D echo to look at his overall left ventricular function, cardiac structure and possible valvulopathies. 5. I did speak to him for greater than 3 minutes about tobacco cessation which he states that he will at least consider. 6. Overall from a preventative standpoint, he should undergo a pharmacologic nuclear stress test which can be done outpatient with his [facility]. Thank you for allowing me to see Bret Simon, if there are any questions please do not hesitate to call. Lukasz Ferrell DO VGP/TLL /10:57 AM /11:41 AM
[2017-01-12 15:20] LABS: HEMOGLOBIN A1a 1.4 %; HEMOGLOBIN A1b 1.4 %; HEMOGLOBIN Ao 86.1 %; HEMOGLOBIN LA1C 1.9 %; HEMOGLOBIN P3 3.3 %
--- NOTE | 2017-01-12 16:55 | PD.CARD.PN ---
Assessment and Plan Assessment and Plan Spoke to the front office representative from [employer] who interrogated the Loop Recorder. No episodes of any arrhythmias since being placed(2014) including atrial fibrillation. Please see consultation for further information. Lukasz Washburn DO Jan 12, 2017 16:55
[2017-01-12] MEDS: ENOXAPARIN SODIUM 30 MG/0.3 ML SYRINGE SQ SCH (16:57)
[2017-01-12] MEDS: ATORVASTATIN 10 MG TAB PO SCH (20:14)
[2017-01-12] MEDS: REMOVE OLD PATCH T-DERMAL SCH (20:15)
[2017-01-12] MEDS ORDERED: IOHEXOL 350 MG/ML 10 ML VIAL (for RAD DIAG) IV ONE (21:21)
--- NOTE | 2017-01-12 21:49 | MB ---
cc: HARMONY MELGOZA MD DATE OF CONSULTATION 01/12/2017 REASON FOR CONSULTATION Stroke. HISTORY OF PRESENT ILLNESS Mr. Simon is a 66-year-old male with past medical history of diabetes, hypertension, prior history of stroke with left-sided weakness that has resolved in 4 days duration 9 years ago and history of, "blackouts". The patient presented to the [facility] Emergency Room for evaluation of a two day history of right arm weakness with slurred speech and slight right lower extremity weakness. He noticed that his arm, right arm was heavy and numb and he was unable to lift. He denies similar episode in the past. He states that there is some improvement but he still not back to himself. He denies headache, double vision, blurred vision, speech difficulty, drooping of the face or visual field defect. The patient has an implanted loop recorder for two years. The patient is under a lot of stresses. He takes care of his sick mother at home, when he is through his who is at the bedside states, that he does not take care of his health. REVIEW OF SYSTEMS A 12-point review of systems is negative except for what is stated in the HPI. PAST MEDICAL HISTORY 1. Prostatic cancer. 2. Hypertension. 3. Seizure. 4. He had a history of remote stroke of the left side of the upper and lower extremity that was resolved in 4 days 9 years ago. 5. Diabetes. 6. Chronic backache. 7. Hypertension. 8. Prostate cancer. 9. Cardiovascular problems / loop recorder is implanted. PAST SURGICAL HISTORY Prostatectomy. MEDICATIONS 1. Aspirin 81 mg daily. 2. Ventolin. 3. Hydrocodone / acetaminophen 10/325. ALLERGIES LISINOPRIL. FAMILY HISTORY Hypertension and diabetes. SOCIAL HISTORY Occasional alcohol use. Smokes half pack a day. Denies substance abuse. PHYSICAL EXAMINATION GENERAL: Awake, alert, oriented, not in acute distress. HEENT: Atraumatic, normocephalic. Intact hearing. Intact vision. NECK: Trachea in the midline. No JVD. No signs of meningeal irritation. CARDIOVASCULAR: Regular rate and rhythm without murmurs. RESPIRATORY: Clear to auscultation. Scattered wheezes. GASTROINTESTINAL: Soft abdomen, not distended. MUSCULOSKELETAL: Without clubbing, cyanosis or edema. Moves extremities. NEUROLOGIC: Awake, alert, oriented to time, person and place. No dysarthria. No dysphagia. Cranial nerves II-XII are grossly intact. No facial asymmetry. Pupils are equally reacting to light and accommodation. No diplopia. No intact external ocular motility. Motor examination, right upper extremity 5-/5 right shoulder abduction, elbow extension and wrist extension. 5-/5 right hip flexion and foot dorsiflexion. Otherwise grade 5/5 throughout. No abnormal movements. Normal tone. Sensation is intact bilateral, symmetrical to light touch and temperature. Reflexes 1+ bilateral and symmetrical. Plantars are bilaterally downgoing. Cerebellar signs are intact bilateral and symmetrical [id number] and [id number]. Stance is normal. No ataxia. Slow tandem walk. Mild wide-based gait. LABORATORY DATA White blood cells 8.1, hemoglobin 11.9, platelet count 402. Sodium 144, chloride 110, potassium 3.6, BUN 13, creatinine 0.71 HDL 6.54, LDL 72. Triglyceride 86. IMAGING - Head CT scan without contrast, stable CT compared to 2015. Ventricles are prominent but stable. Bilateral cortical atrophy. Stable chronic white matter changes. - Brain MRI without contrast revealed small area of acute infarction in the medial left frontoparietal region and the periventricular area. Atrophy. The ventricles appear to be dilated out of proportion to the sulcal widening which raises the possibility of normal-pressure hydrocephalus. Increased signal throughout the cerebral white matter likely related to diffuse small vessel ischemic demyelination change. - I reviewed the MRI brain imaging and it revealed extensive white matter, paraventricular white matter disease with dilated ventricles. - Head MRA was reported as normal. - Neck MRA revealed moderate stenosis at the distal left carotid bulb of the proximal left ICA. It appears the lumen is narrowed by at least 50%. Possible stenosis at origin of the right vertebral artery. These areas could be better characterized with a CTA. DIAGNOSTIC IMPRESSION 1. Acute ischemic strokes. 2. Hypertension. 3. Diabetes. 4. History of prostate cancer. 5. Hypercholesteremia. 6. History of arrhythmia / syncope / blackouts implanted loop recorder. 7. Nicotine dependence. PLAN 1. Neurological checks q.4h. 2. Aspirin 325 milligrams daily. 3. CTA of the neck with contrast. 4. Nicotine patch. 5. No need for permissive hypertension. 6. Echo. 7. Telemetry. 8. Consult cardiology for evaluation of history of arrhythmia and implanted loop recorder. 9. DVT prophylaxis. 10. GI prophylaxis. 11. PT OT recommendations are appreciated. Thank you for the opportunity to participate in the care of your patient. MD YULISA Cabezas/KK /4:08 PM /9:21 PM . MTDLeno
[2017-01-12] MEDS ORDERED: ACETAMINOPHEN/HYDROcodone 325 MG/5 MG TAB PO ONE (22:30)
[2017-01-13] VITALS (8 sets, daily range): BP systolic 133–161; BP diastolic 81–94; PULSE 62–84; RESP 18–20; TEMP 95.3–97; O2SAT 96–100
--- NOTE | 2017-01-13 00:26 | RADRPT ---
EXAM DATE/TIME: 01/12/2017 20:57 [facility] COMPARISON: No previous studies available for comparison. INDICATIONS : Right arm and leg weakness. Abnormal MRA carotids. evaluate right vertebral artery. IV CONTRAST: 85 cc Omnipaque 350 (iohexol) IV RADIATION DOSE: 42.95 CTDIvol (mGy) MEDICAL HISTORY : Cerebrovascular disease. Chronic obstructive pulmonary disease. Carcinoma, prostate.Bladder cancer. H ypertension. Anticoagulant therapy. SURGICAL HISTORY : Prostatectomy. ENCOUNTER: Initial ACUITY: 3 days PAIN SCALE: 0/10 LOCATION: Right neck Elevated flow velocities and ICA/CCA ratios have been found to correlate with increased degrees of vessel stenosis, calculated as percentage of diameter relative to a normal segment of distal ICA/CCA. TECHNIQUE: Volumetric scanning was performed using a multirow detector CT scanner. The data was post processed with a variety of visualization algorithms including full-volume maximum intensity projection, multip lanar sliding thin-slab reformation, curved-planar reformation, and surface-rendering techniques. Us ing automated exposure control and adjustment of the mA and/or kV according to patient size, radiatio n dose was kept as low as reasonably achievable to obtain optimal diagnostic quality images. DICOM f ormat image data is available electronically for review and comparison. FINDINGS: AORTIC ARCH: There is a three-vessel origin of the great vessels from the aorta. There is calcification in aortic arch at the origin of all 3 vessels. No significant ostial stenosis.. RIGHT CAROTID: The common carotid artery is intact. The carotid bulb has a normal configuration without ulceration o r narrowing. There is some minimal calcification about the carotid bulb which does not narrow the katie men. The internal carotid artery lumen is smooth without stenosis. The external carotid artery is i ntact. LEFT CAROTID: Common carotid artery is intact. There is prominent calcification in the carotid bulb and about the proximal internal carotid artery. No significant narrowing of the bulb. There is, however, noncalci fied plaque at the carotid bulb and proximal internal carotid artery which causes a 72% narrowing of the lumen. The external carotid artery is intact. VERTEBRALS: The vertebral arteries have a symmetric diameter. There is focal calcification at the origin of both the right and the left vertebral artery causing approximately 40% narrowing. No stenosis seen dista l to the origin.. CONCLUSION: 1. 70% stenosis of the left carotid bulb due to non-calcified plaque. 2. Prominent calcifications at the ostia of all 3 great vessels from the aortic arch and the origin o f both vertebral arteries without significant ostial stenosis. Ramon Dickens MD on January 13, 2017 at 0:16 Board Certified Radiologist. This report was verified electronically.
[2017-01-13] MEDS: INSULIN ASPART SUPPLEMENTAL SCALE SQ SCH ×4 (06:27→21:00)
[2017-01-13] MEDS: ASPIRIN 325 MG TAB PO SCH (07:24)
[2017-01-13] MEDS: NICOTINE 21 MG/24 HR PATCH T-DERMAL SCH (07:24)
[2017-01-13] MEDS: SODIUM CHLORIDE 0.9% FLUSH 5 ML FLUSH IV FLUSH SCH ×2 (07:26→21:00)
--- NOTE | 2017-01-13 08:42 | EKG ---
Date Performed: 01/11/2017 Time Performed: 13:01:43 PTAGE: 66 years EKG: Sinus rhythm LEFT ANTERIOR FASCICULAR BLOCK ABNORMAL ECG PREVIOUS TRACING : 02/16/2015 10.29 DOCTOR: Patricia Finley Interpretating Date/Time 01/13/2017 08:40:10
[2017-01-13] MEDS: LOSARTAN 25 MG TAB PO SCH (10:08)
--- NOTE | 2017-01-13 10:47 | HHI.PR ---
Subjective Remarks Follow-up left ICA CVA 01/12/17-patient seen and examined, reports improvement of right upper extremity weakness and numbness or denies any acute event overnight. Afebrile. Taking by mouth without any competition nausea and vomiting. 01/13/17-patient seen and examined, was ambulated with PT and no acute event overnight. Neck CTA with 70% stenosis @ left carotid bulb .Only complains of back pain Objective Vitals Vital Signs Date Time Temp Pulse Resp B/P Pulse Ox O2 Delivery O2 Flow Rate FiO2 01/13/17 08:42 95.7 84 19 161/91 97 01/13/17 08:30 Room Air 21 01/13/17 04:00 96.4 80 18 145/88 96 01/13/17 04:00 Room Air 01/13/17 00:00 95.6 70 18 152/87 98 01/13/17 00:00 Room Air 01/12/17 20:25 97 21 01/12/17 20:05 71 01/12/17 20:00 Room Air 01/12/17 20:00 96.4 72 18 163/96 96 01/12/17 17:25 96.1 69 19 158/80 99 01/12/17 12:14 95.9 78 19 147/85 96 I/O 01/12/17 01/12/17 01/12/17 01/13/17 01/13/17 01/13/17 06:59 14:59 22:59 06:59 14:59 22:59 Intake Total 1090 ml Output Total 400 ml Balance 690 ml Intake Oral 1090 ml Output Urine Total 400 ml # Voids 2 4 3 # Bowel Movements 1 0 Result Diagram: 01/11/17 1240 01/12/17 0520 Imaging Last Impressions Neck CTA 01/12/17 0000 Signed Impressions: Service Date/Time: Thursday, January 12, 2017 20:57 - CONCLUSION: 1. 70%% stenosis of the left carotid bulb due to non-calcified plaque. 2. Prominent calcifications at the ostia of all 3 great vessels from the aortic arch and the origin of both vertebral arteries without significant ostial stenosis. Ramon Dickens MD Neck Magnetic Resonance Angiography 01/11/17 1305 Signed Impressions: Service Date/Time: Wednesday, January 11, 2017 14:37 - CONCLUSION: 1. Moderate stenosis at the distal left carotid bulb at the proximal left internal carotid artery. It appears the lumen is narrowed by at least 50%%. 2. Possible stenosis at the origin of the right vertebral artery. 3. These areas could be better characterize with a CTA. Artis Rogers MD Head Magnetic Resonance Angiography 01/11/17 1300 Signed Impressions: Service Date/Time: Wednesday, January 11, 2017 14:37 - CONCLUSION: Normal examination. Artis Rogers MD Brain MRI 01/11/17 1305 Signed Impressions: Service Date/Time: Wednesday, January 11, 2017 14:37 - CONCLUSION: 1. Small area of acute infarction in the medial left frontoparietal region in the paraventricular area. 2. Atrophy. The ventricles appear to be dilated out of proportion to the sulcal widening which raises the possibility of normal pressure hydrocephalus. 3. Increased signal throughout the cerebral white matter likely related to diffuse small vessel ischemic demyelination change. Artis Rogers MD Head CT 01/11/17 1251 Signed Impressions: Service Date/Time: Wednesday, January 11, 2017 13:06 - CONCLUSION: Stable CT scan of the brain compared to 2015. Gwyn Noland MD Objective Remarks GENERAL: NAD and walking the hallway SKIN: Warm and dry. HEAD: Normocephalic. EYES: No scleral icterus. No injection or drainage. NECK: Supple, trachea midline. No JVD or lymphadenopathy. CARDIOVASCULAR: Regular rate and rhythm without murmurs, gallops, or rubs. RESPIRATORY: Breath sounds equal bilaterally. No accessory muscle use. GASTROINTESTINAL: Abdomen soft, non-tender, nondistended. MUSCULOSKELETAL: No cyanosis, or edema. 4/5 RUE, 5/5 RLE; 5/5 LUE, LLE BACK: Nontender without obvious deformity. No CVA tenderness. Procedures None A/P Problem List: (1) CVA (cerebral vascular accident) ICD Code: I63.9 Status: Acute (2) Diabetes mellitus, type 2 ICD Code: E11.9 Status: Chronic (3) Hypertension ICD Code: I10 Status: Chronic Assessment and Plan 66-year-old man with Acute CVA: Treatment per stroke protocol -Patient on admission was outside of window zone for treatment with TPA -Continue with aspirin 325 mg daily however oral anticoagulation per neurology -Change Lipitor to 40 mg at bedtime -NIHSS, Neuro checks, Monitor on telemetry -PT/OT/ST evaluations, consult rehab medicine -d/c permissive HTN, -LDL 72 and HgbA1c 5.5 -carotid U/S noted -Head CT 01/11/[address] scan of the brain compared to 2015 -Brain MRI 01/11/17 with finding of Small area of acute infarction in the medial left frontoparietal region in the paraventricular area. -Brain MRA 01/11/17 with normal examination -Neck MRA 01/11/17 with finding of Moderate stenosis at the distal left carotid bulb at the proximal left internal carotid artery. Possible stenosis at the origin of the right vertebral artery. -Neck CTA with 70% stenoses left carotid bulb -2-D echocardiogram with EF 30-35% -Neurology input appreciated History of hypertension: Resume losartan and add Lopressor 25 mg every 12 hours History of arrhythmias ,syncope Cardiology appreciated Per cardiology "Spoke to the procurement representative from [employer] who interrogated the Loop Recorder. No episodes of any arrhythmias since being placed(2014) including atrial fibrillation." 2-D echo with EF 30-35% Would recommend oral anticoagulation Nicotinic dependence: Counseled to quit, tx with nicotine patch DVT prophylaxis: Bilateral SCDs GI prophylaxis: PPI Problem Qualifiers (1) CVA (cerebral vascular accident): Qualified Code: I63.9 - Cerebrovascular accident (CVA), unspecified mechanism Roshan Rausch MD Jan 13, 2017 10:46
[2017-01-13] MEDS: ACETAMINOPHEN/HYDROcodone 325 MG/10 MG TAB PO PRN ×2 (12:09→21:55)
--- NOTE | 2017-01-13 14:11 | PD.CARD.PN ---
Subjective Subjective Remarks The patient denies chest pain, shortness of breath, GI symptoms, bleeding or neurologic symptoms. Telemetry reveals sinus rhythm. Loop recorder revealed no atrial fibrillation or flutter. Echocardiogram shows a 30-35% ejection fraction. Objective Medications Reviewed Vital Signs / I&O Vital Signs Date Time Temp Pulse Resp B/P Pulse Ox O2 Delivery O2 Flow Rate FiO2 01/13/17 12:22 95.3 80 18 133/81 99 01/13/17 08:42 95.7 84 19 161/91 97 01/13/17 08:30 Room Air 21 01/13/17 04:00 96.4 80 18 145/88 96 01/13/17 04:00 Room Air 01/13/17 00:00 95.6 70 18 152/87 98 01/13/17 00:00 Room Air 01/12/17 20:25 97 21 01/12/17 20:05 71 01/12/17 20:00 Room Air 01/12/17 20:00 96.4 72 18 163/96 96 01/12/17 17:25 96.1 69 19 158/80 99 I/O 01/12/17 01/12/17 01/12/17 01/13/17 01/13/17 01/13/17 07:00 15:00 23:00 07:00 15:00 23:00 Intake Total 1090 ml Output Total 400 ml Balance 690 ml Intake Oral 1090 ml Output Urine Total 400 ml # Voids 2 4 3 # Bowel Movements 1 0 Physical Exam GENERAL: Well-nourished, well-developed patient in no apparent distress. SKIN: Warm and dry. NECK: JVD normal - less than or equal to 5 cm H20. CARDIOVASCULAR: Regular rate and rhythm without murmurs, gallops, or rubs. RESPIRATORY: Normal breath sounds - equal bilaterally. No accessory muscle use. No wheezes, rales or rubs. PERIPHERY: No cyanosis, or edema. Laboratory Reviewed Imaging Last 48 hours Impressions Neck CTA 01/12/17 0000 Signed Impressions: Service Date/Time: Thursday, January 12, 2017 20:57 - CONCLUSION: 1. 70%% stenosis of the left carotid bulb due to non-calcified plaque. 2. Prominent calcifications at the ostia of all 3 great vessels from the aortic arch and the origin of both vertebral arteries without significant ostial stenosis. Ramon Dickens MD Assessment and Plan Assessment and Plan Problems: Recurrent CVA with moderately severe carotid stenosis Hypertension Hyperlipidemia Diabetes Left ventricular dysfunction Recommendations: Continue ARB Would recommend initiation of low-dose beta blockers. The patient should also be on high-dose statin therapy. There is no evidence for arrhythmia as a source of this but the patient has significant left ventricular dysfunction which could be an embolic source. I would leave it to neurology to decide as to whether the patient should be on warfarin. [facility] We will be available this hospital stay if needed. We will sign off. All questions were answered. Vargas Carvalho MD Jan 13, 2017 14:11
--- NOTE | 2017-01-13 16:08 | HHI.FF ---
Face to Face Verification Diagnosis: (1) CVA (cerebral vascular accident) (2) Hypertension Physical Therapy Order: Evaluate and Treat Occupational Therapy Order: Evaluate and Treat I have seen patient rBet Wei on 01/13/17. My clinical findings support the need for the requested home health care services because: Deconditioned w/ increased weakness I certify that my clinical findings support that this patient is homebound because: Poor cardiac reserve Roshan Rausch MD Jan 13, 2017 16:08
[2017-01-13] MEDS: ENOXAPARIN SODIUM 30 MG/0.3 ML SYRINGE SQ SCH (17:03)
--- NOTE | 2017-01-13 17:05 | HHI.PR ---
Review/Management Diagnosis 1. Acute ischemic stroke left fronto-parietal region. 2. Hypertension. 3. Diabetes. 4. History of prostate cancer. 5. Hypercholesteremia. 6. History of arrhythmia / syncope / blackouts implanted loop recorder. 7. Nicotine dependence 8. Intracranial arterial stenoses, left ICA carotid bulb 70% stenosis. Plan 1. Neurological checks q.4h. 2. Aspirin 325 milligrams daily. 3. No indication for anticoagulation 4. Consult vascular surgery, recommendations are appreciated 5. Nicotine patch. 6. DVT prophylaxis. 7. GI prophylaxis. 8. PT OT recommendations are appreciated. Diagnosis/Plan: Subjective Subjective Comments No acute events reported Patient states that he has regained much of the strength of the right UE Neck CTA revealed a non-calcified plaque at the proximal left ICA and carotid bulb causing 72% stenosis As per medical records, cardiology notes, loop recorder interrogation did not reveal A fib or atrial flutter since placement of the recorder 2014 EF 30-40% Active Medications Current Medications Medications (Trade) Dose Ordered Sig/René Route Start Time Stop Time Status Last Admin (NS Flush) 2 ml BID IV FLUSH 01/11/17 21:00 01/13/17 07:26 (NS Flush) 2 ml UNSCH PRN IV FLUSH 01/11/17 16:30 (Vasotec Inj) 1.25 mg Q4H PRN IV 01/11/17 16:30 (Aspirin) 325 mg DAILY PO 01/12/17 09:00 01/13/17 07:24 (D50w (Vial) Inj) 50 ml UNSCH PRN IV PUSH 01/11/17 16:30 (Lovenox Inj) 30 mg Q24H SQ 01/11/17 18:00 01/12/17 16:57 (Glucagon Inj) 1 mg UNSCH PRN OTHER 01/11/17 16:45 (Habitrol 21 Mg Patch.24 Hr) 1 patch DAILY T-DERMAL 01/11/17 18:30 01/13/17 07:24 Miscellaneous Information 1 HS T-DERMAL 01/11/17 21:00 01/12/17 20:15 (Cozaar) 25 mg DAILY PO 01/13/17 09:30 01/13/17 10:08 ([place] 10-325 Mg) 1 tab Q8HR PRN PO 01/13/17 11:00 01/13/17 12:09 (Lipitor) 40 mg HS PO 01/13/17 21:00 (Lopressor) 25 mg Q12HR PO 01/13/17 21:00 Allergies Allergies Coded Allergies Lisinopril (Verified Allergy, Severe, 01/11/17) Exam I&O / VS 01/12/17 01/12/17 01/13/17 15:00 23:00 07:00 Intake Total 1090 ml Output Total 400 ml Balance 690 ml Intake Oral 1090 ml Output Urine Total 400 ml # Voids 4 3 # Bowel Movements 1 0 Vital Signs Date Time Temp Pulse Resp B/P Pulse Ox O2 Delivery O2 Flow Rate FiO2 01/13/17 16:30 97.0 75 18 151/86 99 01/13/17 12:22 95.3 80 18 133/81 99 01/13/17 08:42 95.7 84 19 161/91 97 01/13/17 08:30 Room Air 21 01/13/17 04:00 96.4 80 18 145/88 96 01/13/17 04:00 Room Air 01/13/17 00:00 95.6 70 18 152/87 98 01/13/17 00:00 Room Air 01/12/17 20:25 97 21 01/12/17 20:05 71 01/12/17 20:00 Room Air 01/12/17 20:00 96.4 72 18 163/96 96 01/12/17 17:25 96.1 69 19 158/80 99 Exam Comments GENERAL: Awake, alert, oriented, not in acute distress. HEENT: Atraumatic, normocephalic. Intact hearing. Intact vision. NECK: Trachea in the midline. No JVD. No signs of meningeal irritation. CARDIOVASCULAR: Regular rate and rhythm without murmurs. RESPIRATORY: Clear to auscultation. Scattered wheezes. GASTROINTESTINAL: Soft abdomen, not distended. MUSCULOSKELETAL: Without clubbing, cyanosis or edema. Moves extremities. NEUROLOGIC: Awake, alert, oriented to time, person and place. No dysarthria. No dysphagia. Cranial nerves II-XII are grossly intact. No facial asymmetry. Pupils are equally reacting to light and accommodation. No diplopia. No intact external ocular motility. Motor examination, right upper extremity 5-/5 right shoulder abduction, elbow extension and wrist extension. 5-/5 right hip flexion and foot dorsiflexion. Otherwise grade 5/5 throughout. No abnormal movements. Normal tone. Sensation is intact bilateral, symmetrical to light touch and temperature. Reflexes 1+ bilateral and symmetrical. Plantars are bilaterally downgoing. Cerebellar signs are intact bilateral and symmetrical [id number] and [id number]. Stance is normal. No ataxia. Slow tandem walk. Mild wide-based gait Objective Radiology Results Last 72 hours Impressions Neck CTA 01/12/17 0000 Signed Impressions: Service Date/Time: Thursday, January 12, 2017 20:57 - CONCLUSION: 1. 70%% stenosis of the left carotid bulb due to non-calcified plaque. 2. Prominent calcifications at the ostia of all 3 great vessels from the aortic arch and the origin of both vertebral arteries without significant ostial stenosis. Ramon Dickens MD Neck Magnetic Resonance Angiography 01/11/17 1305 Signed Impressions: Service Date/Time: Wednesday, January 11, 2017 14:37 - CONCLUSION: 1. Moderate stenosis at the distal left carotid bulb at the proximal left internal carotid artery. It appears the lumen is narrowed by at least 50%%. 2. Possible stenosis at the origin of the right vertebral artery. 3. These areas could be better characterize with a CTA. Artis Rogers MD Head Magnetic Resonance Angiography 01/11/17 1305 Signed Impressions: Service Date/Time: Wednesday, January 11, 2017 14:37 - CONCLUSION: Normal examination. Artis Rogers MD Brain MRI 01/11/17 1305 Signed Impressions: Service Date/Time: Wednesday, January 11, 2017 14:37 - CONCLUSION: 1. Small area of acute infarction in the medial left frontoparietal region in the paraventricular area. 2. Atrophy. The ventricles appear to be dilated out of proportion to the sulcal widening which raises the possibility of normal pressure hydrocephalus. 3. Increased signal throughout the cerebral white matter likely related to diffuse small vessel ischemic demyelination change. Artis Rogers MD Head CT 01/11/17 1251 Signed Impressions: Service Date/Time: Wednesday, January 11, 2017 13:06 - CONCLUSION: Stable CT scan of the brain compared to 2015. MD Maria R Fan Raid G. MD Jan 13, 2017 17:05
--- NOTE | 2017-01-13 17:24 | HM ---
Date Performed: 01/11/2017 Time Performed: 20:08:00 HOOKUP DATE: 01/11/17 08:08:00 PM Sun ANALYSIS START TIME: 01/11/2017 8:13:00 PM ANALYSIS END TIME: 01/12/2017 8:16:59 PM PATIENT AGE: 66 PATIENT HEIGHT PATIENT WEIGHT DRUG LIST PATIENT DIAGNOSIS TEST NARRATIVE: The patient's average heart rate was 75 BPM. No episodes of tachycardia wer e noted. Heart rates less than 50 BPM were noted < 1% of the time. No pauses exceeding 2.0 secon ds were noted. 610 ventricular ectopics, which represented 1% of the total beat count, were noted . The highest ventricular ectopic frequency occurred from 04:00 PM to 05:00 PM Mon. During this issa e 57 VE(s) occurred. Ventricular ectopics were observed as 608 isolated beat(s) and as 1 couplet(s). No runs were noted. Some of the ventricular beats occurred in bigeminal cycles. 26 supraventri cular ectopics, which represented < 1% of the total beat count, were noted. The highest supraventric ular ectopic frequency occurred from 10:00 AM to 11:00 AM Mon. During this time 6 SVE(s) occurred. No episodes of ST depression (defined as -1.0 mm or more) were noted in channel 1. No episodes of ST depression (defined as -1.0 mm or more) were noted in channel 2. No episodes of ST depression (d efined as -1.0 mm or more) were noted in channel 3. no diary maintained TEST INTERPRETATION: Patient was monitored for 24 hours and 4 minutes. Patient was in normal Sin us rhythm , average heart rate was 75 bpm. Periods of sinus bradycardia at 50 bpm at 4:11 am. Periods of suprav entricular tachycardia to 121 bpm at 7:43 pm. The duration is 10 beats. 608 PVCs, 20 PACs. One ventri cular couplet. Signed by : Tre Byrd
[2017-01-13] MEDS: REMOVE OLD PATCH T-DERMAL SCH (21:00)
[2017-01-13] MEDS: ATORVASTATIN 40 MG TAB PO SCH (21:54)
[2017-01-13] MEDS: METOPROLOL TARTRATE 25 MG TAB PO SCH (21:55)
[2017-01-14] VITALS (8 sets, daily range): BP systolic 112–176; BP diastolic 73–92; PULSE 64–87; RESP 16–24; TEMP 95.6–98.8; O2SAT 95–99
[2017-01-14] MEDS: INSULIN ASPART SUPPLEMENTAL SCALE SQ SCH ×4 (04:30→21:00)
[2017-01-14] MEDS: SODIUM CHLORIDE 0.9% FLUSH 5 ML FLUSH IV FLUSH SCH ×2 (09:00→22:19)
[2017-01-14] MEDS: LOSARTAN 25 MG TAB PO SCH (09:07)
[2017-01-14] MEDS: METOPROLOL TARTRATE 25 MG TAB PO SCH ×2 (09:07→22:20)
[2017-01-14] MEDS: ACETAMINOPHEN/HYDROcodone 325 MG/10 MG TAB PO PRN ×2 (09:07→18:29)
[2017-01-14] MEDS: ASPIRIN 325 MG TAB PO SCH (09:08)
[2017-01-14] MEDS: NICOTINE 21 MG/24 HR PATCH T-DERMAL SCH (09:09)
--- NOTE | 2017-01-14 09:36 | HHI.PR ---
Subjective Remarks Follow-up for left frontal parietal stroke. Patient is currently doing well. He is ambulating in the room. No chest pain, shortness of breath, fever or chills. He is able to use his right hand much better today. Waiting for vascular surgery evaluation with regards to left carotid artery stenosis. Objective Vitals Vital Signs Date Time Temp Pulse Resp B/P Pulse Ox O2 Delivery O2 Flow Rate FiO2 01/14/17 08:00 96.8 72 24 145/92 98 01/14/17 04:00 96.9 87 20 176/92 99 01/14/17 00:00 95.6 65 20 152/85 97 01/13/17 21:00 70 01/13/17 20:00 97.0 81 20 151/94 100 01/13/17 16:30 97.0 75 18 151/86 99 01/13/17 12:22 95.3 80 18 133/81 99 I/O 01/13/17 01/13/17 01/13/17 01/14/17 01/14/17 01/14/17 07:00 15:00 23:00 07:00 15:00 23:00 Intake Total 620 ml 840 ml Balance 620 ml 840 ml Intake Oral 620 ml 840 ml # Voids 3 2 5 # Bowel Movements 0 Result Diagram: 01/11/17 1240 01/12/17 0520 Imaging Last Impressions Neck CTA 01/12/17 0000 Signed Impressions: Service Date/Time: Thursday, January 12, 2017 20:57 - CONCLUSION: 1. 70%% stenosis of the left carotid bulb due to non-calcified plaque. 2. Prominent calcifications at the ostia of all 3 great vessels from the aortic arch and the origin of both vertebral arteries without significant ostial stenosis. Ramon Dickens MD Neck Magnetic Resonance Angiography 01/11/17 1305 Signed Impressions: Service Date/Time: Wednesday, January 11, 2017 14:37 - CONCLUSION: 1. Moderate stenosis at the distal left carotid bulb at the proximal left internal carotid artery. It appears the lumen is narrowed by at least 50%%. 2. Possible stenosis at the origin of the right vertebral artery. 3. These areas could be better characterize with a CTA. Artis Rogers MD Head Magnetic Resonance Angiography 01/11/17 1305 Signed Impressions: Service Date/Time: Wednesday, January 11, 2017 14:37 - CONCLUSION: Normal examination. Artis Rogers MD Brain MRI 01/11/17 1305 Signed Impressions: Service Date/Time: Wednesday, January 11, 2017 14:37 - CONCLUSION: 1. Small area of acute infarction in the medial left frontoparietal region in the paraventricular area. 2. Atrophy. The ventricles appear to be dilated out of proportion to the sulcal widening which raises the possibility of normal pressure hydrocephalus. 3. Increased signal throughout the cerebral white matter likely related to diffuse small vessel ischemic demyelination change. Artis Rogers MD Head CT 01/11/17 1251 Signed Impressions: Service Date/Time: Wednesday, January 11, 2017 13:06 - CONCLUSION: Stable CT scan of the brain compared to 2015. Gwyn Noland MD Objective Remarks GENERAL: AOX3, NAD. SKIN: Warm and dry. HEAD: Normocephalic. EYES: No scleral icterus. No injection or drainage. NECK: Supple, trachea midline. No JVD or lymphadenopathy. CARDIOVASCULAR: Regular rate and rhythm without murmurs, gallops, or rubs. RESPIRATORY: Breath sounds equal bilaterally. No accessory muscle use. GASTROINTESTINAL: Abdomen soft, non-tender, nondistended. MUSCULOSKELETAL: No cyanosis, or edema. Right hand is slightly weaker than the left. BACK: Nontender without obvious deformity. No CVA tenderness. Procedures 01/12/2017 Echocardiogram The left ventricular systolic function is severely reduced with an estimated ejection fraction in the range of 30-35%. Global hypokinesis. There is assymetric septal hypertrophy. Mild mitral valve regurgitation. A/P Problem List: (1) CVA (cerebral vascular accident) ICD Code: I63.9 Status: Acute (2) Diabetes mellitus, type 2 ICD Code: E11.9 Status: Chronic (3) Hypertension ICD Code: I10 Status: Chronic Assessment and Plan Mr. Simon is a 66-year-old male with a history of diabetes type 2, hypertension, prior history of CVA came to the ED on 01/11/2017 for evaluation of 2 day history of right arm weakness slight right lower extremity weakness and some slurring speech. Brain MRI indicated small area of acute infarction in the medial left frontoparietal region. Neck CTA shows 70% stenosis of the left carotid bulb due to non-calcified plaque. - Left frontoparietal ischemic stroke - Left ICA stenosis - Continue Aspirin 325mg Qday, Lipitor 40mg qday. - PT continues to work with patient. Patient would benefit from home health PT/OT. - Vascular surgery consult pending. If no intervention is planned, patient can likely be discharged home with outpatient follow up. - Patient's loop recorder was interrogated and found no history of arrhythmia including atrial fibrillation. - Hypertension - Continue losartan 25 mg daily, metoprolol 25 mg every 12 hours. Vasotec when necessary - Diabetes mellitus - Continue sliding scale insulin. Change medium is scheduled to low sliding scale insulin. Full code. Ambulation Problem Qualifiers (1) CVA (cerebral vascular accident): Qualified Code: I63.9 - Cerebrovascular accident (CVA), unspecified mechanism Minerva Bennett DO Jan 14, 2017 9:36 am
[2017-01-14] MEDS: ENOXAPARIN SODIUM 30 MG/0.3 ML SYRINGE SQ SCH (18:30)
[2017-01-14] MEDS: REMOVE OLD PATCH T-DERMAL SCH (22:19)
[2017-01-14] MEDS: ATORVASTATIN 40 MG TAB PO SCH (22:20)
[2017-01-15] VITALS: BP 128/84; PULSE 71; RESP 16; TEMP 98; O2SAT 97
[2017-01-15 04:00] VITALS: BP 138/100; PULSE 89; RESP 18; TEMP 97.9; O2SAT 99
[2017-01-15] MEDS: INSULIN ASPART SUPPLEMENTAL SCALE SQ SCH ×2 (06:07→11:00)
[2017-01-15 08:00] VITALS: BP 155/96; PULSE 85; RESP 20; TEMP 96.3; O2SAT 100
[2017-01-15] MEDS: ASPIRIN 325 MG TAB PO SCH (08:14)
[2017-01-15] MEDS: LOSARTAN 25 MG TAB PO SCH (08:14)
[2017-01-15] MEDS: NICOTINE 21 MG/24 HR PATCH T-DERMAL SCH (08:14)
[2017-01-15] MEDS: METOPROLOL TARTRATE 25 MG TAB PO SCH (08:14)
[2017-01-15] MEDS: SODIUM CHLORIDE 0.9% FLUSH 5 ML FLUSH IV FLUSH SCH (08:17)
--- NOTE | 2017-01-15 09:31 | PD.VS.PN ---
Subjective Subjective/Hospital Course Consult for L Carotid Stenosis Arranged for patient to Follow up in our Out patient Clinic Pt scheduled for 01/21/17 at 3:15 Objective Vitals/I&O Date Time Temp Pulse Resp B/P Pulse Ox O2 Delivery O2 Flow Rate FiO2 01/15/17 08:00 96.3 85 20 155/96 100 01/15/17 04:00 97.9 89 18 138/100 99 01/15/17 00:00 98.0 71 16 128/84 97 01/14/17 20:02 65 01/14/17 20:00 98.8 75 16 163/92 96 01/14/17 16:00 96.4 69 20 112/73 95 01/14/17 12:00 96.2 64 20 139/83 99 01/14/17 10:27 18 01/14/17 10:05 98 01/15/17 01/15/17 01/15/17 07:00 15:00 23:00 Intake Total 480 ml Balance 480 ml Assessment and Plan Assessment: (1) CVA (cerebral vascular accident) Status: Acute Plan Consult Carotid Stenosis Arranged for out pt f/u Pt scheduled for 01/21/17 at 3:15 Vanesa WANG [facility] [phone] Problem Qualifiers (1) CVA (cerebral vascular accident): Qualified Code: I63.9 - Cerebrovascular accident (CVA), unspecified mechanism Vanesa Gardner Jan 15, 2017 09:31
[2017-01-15] MEDS: ACETAMINOPHEN/HYDROcodone 325 MG/10 MG TAB PO PRN (09:56)
[2017-01-15] MEDS ORDERED: ATOR40TA16 PO (10:13)
[2017-01-15] MEDS ORDERED: METO25TA3 PO (10:13)
[2017-01-15] MEDS ORDERED: ASPI325T PO (10:13)
--- NOTE | 2017-01-15 10:14 | HHI.DS ---
Discharge Summary Admission Date Jan 11, 2017 at 4:33 pm Discharge Date: Jan 15, 2017 Admitting Diagnosis CVA, ?Arrhythmia (1) CVA (cerebral vascular accident) ICD Code: I63.9 (2) Diabetes mellitus, type 2 ICD Code: E11.9 (3) Hypertension ICD Code: I10 Procedures 01/12/2017 Echocardiogram The left ventricular systolic function is severely reduced with an estimated ejection fraction in the range of 30-35%. Global hypokinesis. There is assymetric septal hypertrophy. Mild mitral valve regurgitation. Brief History - From Admission 66-year-old male with a history of diabetes type 2, hypertension, prior history of CVA came to the ED for evaluation of 2 day history of right arm weakness slight right lower extremity weakness and some slurring speech. Patient states, yesterday when he woke up from sleep around 6 AM his right arm was noticed to be heavy and numbed, which patient was unable to lift. However patient states this improved this morning after he woke up, but it is still weaker than the left one. He was also noted per his 's account to have a funny speech. He also reported some right lower extremity weakness. Patient has an implanted loop recorder, states several years ago he was having episode of syncope. Otherwise currently denies any chest pain or shortness of breath. Brain MRI was abnormal CBC/BMP: 01/11/17 1240 01/12/17 0520 Imaging Last Impressions Neck CTA 01/12/17 0000 Signed Impressions: Service Date/Time: Thursday, January 12, 2017 20:57 - CONCLUSION: 1. 70%% stenosis of the left carotid bulb due to non-calcified plaque. 2. Prominent calcifications at the ostia of all 3 great vessels from the aortic arch and the origin of both vertebral arteries without significant ostial stenosis. Ramon Dickens MD Neck Magnetic Resonance Angiography 01/11/17 1305 Signed Impressions: Service Date/Time: Wednesday, January 11, 2017 14:37 - CONCLUSION: 1. Moderate stenosis at the distal left carotid bulb at the proximal left internal carotid artery. It appears the lumen is narrowed by at least 50%%. 2. Possible stenosis at the origin of the right vertebral artery. 3. These areas could be better characterize with a CTA. Artis Rogers MD Head Magnetic Resonance Angiography 01/11/17 1305 Signed Impressions: Service Date/Time: Wednesday, January 11, 2017 14:37 - CONCLUSION: Normal examination. Artis Rogers MD Brain MRI 01/11/17 1305 Signed Impressions: Service Date/Time: Wednesday, January 11, 2017 14:37 - CONCLUSION: 1. Small area of acute infarction in the medial left frontoparietal region in the paraventricular area. 2. Atrophy. The ventricles appear to be dilated out of proportion to the sulcal widening which raises the possibility of normal pressure hydrocephalus. 3. Increased signal throughout the cerebral white matter likely related to diffuse small vessel ischemic demyelination change. Artis Rogers MD Head CT 01/11/17 1251 Signed Impressions: Service Date/Time: Wednesday, January 11, 2017 13:06 - CONCLUSION: Stable CT scan of the brain compared to 2015. Gwyn Noland MD PE at Discharge GENERAL: AOX3, NAD. SKIN: Warm and dry. HEAD: Normocephalic. EYES: No scleral icterus. No injection or drainage. NECK: Supple, trachea midline. No JVD or lymphadenopathy. CARDIOVASCULAR: Regular rate and rhythm without murmurs, gallops, or rubs. RESPIRATORY: Breath sounds equal bilaterally. No accessory muscle use. GASTROINTESTINAL: Abdomen soft, non-tender, nondistended. MUSCULOSKELETAL: No cyanosis, or edema. Right hand is slightly weaker than the left. BACK: Nontender without obvious deformity. No CVA tenderness. Pt update on day of discharge Follow-up for left frontal parietal stroke. Patient is doing well. Ambulating well. No acute concerns. Hospital Course Mr. Simon is a 66-year-old male with a history of diabetes type 2, hypertension, prior history of CVA came to the ED on 01/11/2017 for evaluation of 2 day history of right arm weakness slight right lower extremity weakness and some slurring speech. Brain MRI indicated small area of acute infarction in the medial left frontoparietal region. Neck CTA shows 70% stenosis of the left carotid bulb due to non-calcified plaque. - Left frontoparietal ischemic stroke - Left ICA stenosis - Continue Aspirin 325mg Qday, Lipitor 40mg qday. - PT continues to work with patient. Patient would benefit from home health PT/OT. - Vascular surgery consulted - discussed with Vascular surgeon who reviewed images. - Vascular surgeon recommended outpatient follow up and continuation of Aspirin and Statin. - Patient's loop recorder was interrogated and found no history of arrhythmia including atrial fibrillation. - Hypertension - Continue losartan 25 mg daily, metoprolol 25 mg every 12 hours. Vasotec when necessary - Diabetes mellitus - Continue sliding scale insulin. Change medium is scheduled to low sliding scale insulin. Pt Condition on Discharge: Good Discharge Disposition: Disch w/ Home Health Serv Discharge Time: > 30 minutes Discharge Instructions DIET: Follow Instructions for: Diabetic Diet Activities you can perform: Regular-No Restrictions Follow up Referrals: Appointment for Follow Up @ [facility] with Dr. Dixon PCP Follow-up - 1 Week New Medications: Aspirin (Aspirin) 325 Mg Tab 325 MG PO DAILY Blood Clot Prevention #90 TAB Atorvastatin (Atorvastatin) 40 Mg Tab 40 MG PO HS Cholesterol Management #30 TAB Metoprolol Tartrate (Metoprolol Tartrate) 25 Mg Tab 25 MG PO Q12HR Blood Pressure Management #60 TAB Continued Medications: Albuterol 18 GM Inh (Ventolin Hfa 18 GM Inh) 90 Mcg/Act Aer 2 PUFF INH Q4H PRN SHORTNESS OF BREATH #1 Ref 0 INHALER Albuterol Neb (Albuterol Neb) 0.63 Mg/3 Ml Neb 0.63 MG NEB Q4HR NEB PRN SHORTNESS OF BREATH #25 Ref 0 NEBULE Hydrocodone-Acetaminophen (Hydrocodone-Acetaminophen) 10-325 mg Tab 1 TAB PO Q8HR PRN PAIN Ref 0 TAB Losartan (Losartan) 25 Mg Tab 25 MG PO DAILY Blood Pressure Management #30 Ref 0 TAB Discontinued Medications: Aspirin (Aspirin EC) 81 Mg Tabdr 81 MG PO DAILY Ref 0 TAB Minerva Bennett DO Jan 15, 2017 10:14 am
[2017-01-15 11:08] VITALS: RESP 18
== END 2017-01-15 11:13 | disposition home health service (06) | DRG 66 ==
LOC: PHED 12:16 → PHEDA 16:18 → OBSVTOIN 16:33 → PH3A 17:33
PROVIDERS: ADMIT Hospitalist; ATTEND Hospitalist
DX: I63.9 Cerebral infarction, unspecified (principal); J44.9 Chronic obstructive pulmonary disease, unspecified; I10 Essential (primary) hypertension; F17.210 Nicotine dependence, cigarettes, uncomplicated; E11.9 Type 2 diabetes mellitus without complications; G89.29 Other chronic pain; M54.9 Dorsalgia, unspecified; I51.9 Heart disease, unspecified; R47.81 Slurred speech; I65.22 Occlusion and stenosis of left carotid artery; E78.5 Hyperlipidemia, unspecified; Z79.82 Long term (current) use of aspirin; Z86.73 Personal history of transient ischemic attack (TIA), and cerebral infarction without residual deficits; Z85.46 Personal history of malignant neoplasm of prostate; Z85.51 Personal history of malignant neoplasm of bladder; Z92.3 Personal history of irradiation
CPT/HCPCS: 70450; 70498; 70544; 70548; 70551; 80048; 80053; 80061; 80307; 82948; 83036; 85025; 93005; 93225; 93226; 93306; A9579; J1650; J1815; Q9967

== ENCOUNTER 2017-11-04 20:17 | Observation (INO) | payer OTHER, MEDICARE ==
[~2017-11-04] VITALS: Ht 170.2 cm; Wt 69.6 kg
[~2017-11-04 20:17] MED LIST changes: -ALBU0.086 INH; +ALBU0.63 NEB; -ALBU8I INH; +ASPI-183 PO; +ATOR40TA16 PO; +HYDR-3583 PO; -HYDR10SO PO; +LOSA25TA PO; +METO25TA3 PO; -PROBCAP4 PO; -ST JTAB PO; -TAB-TAB PO; +VENTAER INH; -ZOFR4TAB3 SL
[2017-11-04 20:20] VITALS: BP 142/68; PULSE 92; RESP 18; TEMP 98.8; O2SAT 98
[2017-11-04] MEDS ORDERED: SODIUM CHLORIDE 0.9% FLUSH 10 ML FLUSH IVF PRN (20:45)
--- NOTE | 2017-11-04 20:46 | PD ---
HPI Chief Complaint: Abnormal Results Time Seen by Provider: 20:31 Travel History International Travel<30 days: No Contact w/Intl Traveler<30days: No Traveled to known affect area: No History of Present Illness HPI 67-year-old male with history of CVA on aspirin and Plavix, prostate cancer, bladder cancer, both treated, 1 pack per day smoker, sent in by the [place] for evaluation of anemia. Patient had lab work done last week and [facility] to inform him that his hemoglobin is 7.8 and that he should seek emergency evaluation. Patient has noted some weakness lately especially feeling weak in his legs while walking. He has chronic back pains which are unchanged. He has not noted any melena or hematochezia. No chest pain or dyspnea. No abdominal pain. He was also told by the [facility] that there is blood in his urine. PFSH Past Medical History Hx Anticoagulant Therapy: Yes (PLAVIX) Arthritis: Yes Asthma: No Heart Rhythm Problems: Yes Cancer: Yes Cardiovascular Problems: Yes (HTN, CHOL LOOP RECORDER) High Cholesterol: No Chemotherapy: Yes Chest Pain: No Congestive Heart Failure: No COPD: Yes Cerebrovascular Accident: Yes Diabetes: Yes Diminished Hearing: No GERD: No Genitourinary: Yes Hiatal Hernia: No Herniated Disk: Yes Hypertension: Yes Kidney Stones: No Musculoskeletal: Yes Neurologic: No Psychiatric: No Reproductive: No Respiratory: Yes Immunizations Current: Yes Migraines: No Radiation Therapy: Yes Renal Failure: No Seizures: No Sleep Apnea: No Thyroid Disease: No Ulcer: No Past Surgical History Abdominal Surgery: No AICD: No Arteriovenous Shunt: No Body Medical Devices: loop recorder Cardiac Surgery: No Ear Surgery: No Endocrine Surgery: No Eye Surgery: No Genitourinary Surgery: Yes (bladder Ca prostate ca) Gynecologic Surgery: No Insulin Pump: No Joint Replacement: No Oral Surgery: No Pacemaker: No Prostatectomy: Yes (BLADDER) Thoracic Surgery: No Social History Alcohol Use: Yes (OCC) Tobacco Use: Yes (1/2 PPD) Substance Use: No Allergies-Medications (Allergen,Severity, Reaction): Coded Allergies: lisinopril (Unverified Allergy, Severe, 11/04/17) Reported Meds & Prescriptions Reported Meds & Active Scripts Active Atorvastatin (Atorvastatin Calcium) 40 Mg Tab 40 Mg PO HS Aspirin 325 Mg Tab 325 Mg PO DAILY Reported Clopidogrel (Clopidogrel Bisulfate) 75 Mg Tab 75 Mg PO DAILY Hydrocodone-Acetaminophen 10-325 mg Tab 1 Tab PO Q8HR PRN Albuterol Neb (Albuterol Sulfate) 0.63 Mg/3 Ml Neb 0.63 Mg NEB Q4HR NEB PRN Ventolin Hfa 18 GM Inh (Albuterol Sulfate) 90 Mcg/Act Aer 2 Puff INH Q4H PRN Review of Systems Except as stated in HPI: all other systems reviewed are Neg Physical Exam Narrative GENERAL: Well-developed, well-nourished, awake, alert, no apparent distress. SKIN: Focused skin assessment warm/dry. HEAD: Atraumatic. Normocephalic. EYES: Pupils equal and round. No scleral icterus. No injection or drainage. ENT: No nasal bleeding or discharge. Mucous membranes pink and moist. NECK: Trachea midline. No JVD. CARDIOVASCULAR: Regular rate and rhythm. RESPIRATORY: No accessory muscle use. Clear to auscultation. Breath sounds equal bilaterally. GASTROINTESTINAL: Abdomen soft, non-tender, nondistended. RECTUM: No masses, no fissures, no hemorrhoids, heme positive brown stool. MUSCULOSKELETAL: No obvious deformities. No clubbing. No cyanosis. No edema. NEUROLOGICAL: Awake and alert. No obvious cranial nerve deficits. Motor grossly within normal limits. Normal speech. PSYCHIATRIC: Appropriate mood and affect; insight and judgment normal. Data Data Last Documented VS Vital Signs Date Time Temp Pulse Resp B/P (MAP) Pulse Ox O2 Delivery O2 Flow Rate FiO2 11/04/17 21:41 79 14 126/70 (88) 95 Room Air 11/04/17 20:20 98.8 Orders Orders Complete Blood Count With Diff (11/04/17 20:43) Comprehensive Metabolic Panel (11/04/17 20:43) Lipase (11/04/17 20:43) Prothrombin Time / Inr (Pt) (11/04/17 20:43) Act Partial Throm Time (Ptt) (11/04/17 20:43) Urinalysis - C+S If Indicated (11/04/17 20:43) Type And Screen (11/04/17 20:43) Ecg Monitoring (11/04/17 20:43) Iv Access Insert/Monitor (11/04/17 20:43) Oximetry (11/04/17 20:43) Sodium Chloride 0.9% Flush (Ns Flush) (11/04/17 20:45) Red Blood Cells (Rbc) (11/04/17 21:40) Blood Product Administration (11/04/17 21:40) Sodium Chlor 0.9% 250 Ml Inj (Ns 250 Ml (11/04/17 21:45) Labs Laboratory Tests Test 11/04/17 20:55 White Blood Count 7.8 TH/MM3 Red Blood Count 3.31 MIL/MM3 Hemoglobin 7.4 GM/DL Hematocrit 23.5 % Mean Corpuscular Volume 71.0 FL Mean Corpuscular Hemoglobin 22.4 PG Mean Corpuscular Hemoglobin Concent 31.5 % Red Cell Distribution Width 18.6 % Platelet Count 454 TH/MM3 Mean Platelet Volume 7.8 FL Neutrophils (%) (Auto) 48.4 % Lymphocytes (%) (Auto) 22.6 % Monocytes (%) (Auto) 10.9 % Eosinophils (%) (Auto) 16.6 % Basophils (%) (Auto) 1.5 % Neutrophils # (Auto) 3.7 TH/MM3 Lymphocytes # (Auto) 1.8 TH/MM3 Monocytes # (Auto) 0.9 TH/MM3 Eosinophils # (Auto) 1.3 TH/MM3 Basophils # (Auto) 0.1 TH/MM3 CBC Comment AUTO DIFF Differential Comment AUTO DIFF CONFIRMED Platelet Estimate HIGH Platelet Morphology Comment NORMAL Tear Drop Cells 1+ Ovalocytes 1+ Prothrombin Time 9.6 SEC Prothromb Time International Ratio 0.9 RATIO Activated Partial Thromboplast Time 21.7 SEC Urine Color YELLOW Urine Turbidity CLEAR Urine pH 6.0 Urine Specific [place] LESS/EQUAL 1.005 Urine Protein NEG mg/dL Urine Glucose (UA) NEG mg/dL Urine Ketones NEG mg/dL Urine Occult Blood NEG Urine Nitrite NEG Urine Bilirubin NEG Urine Urobilinogen 0.2 MG/DL Urine Leukocyte Esterase SMALL Urine RBC 0-2 /hpf Urine WBC 6-8 /hpf Urine Squamous Epithelial Cells 0-5 /hpf Urine Bacteria NONE /hpf Microscopic Urinalysis Comment CULT NOT INDICATED Blood Urea Nitrogen 10 MG/DL Creatinine 0.61 MG/DL Random Glucose 119 MG/DL Total Protein 7.1 GM/DL Albumin 3.3 GM/DL Calcium Level 8.4 MG/DL Alkaline Phosphatase 70 U/L Aspartate Amino Transf (AST/SGOT) 23 U/L Alanine Aminotransferase (ALT/SGPT) 25 U/L Total Bilirubin 0.1 MG/DL Sodium Level 133 MEQ/L Potassium Level 3.5 MEQ/L Chloride Level 101 MEQ/L Carbon Dioxide Level 24.6 MEQ/L Anion Gap 7 MEQ/L Estimat Glomerular Filtration Rate 132 ML/MIN Lipase 67 U/L [facility] Medical Decision Making Medical Screen Exam Complete: Yes Emergency Medical Condition: Yes Medical Record Reviewed: Yes Differential Diagnosis Anemia, GI bleed, coagulopathy, hematuria, bladder cancer, colon cancer Narrative Course Initial vital signs show heart rate 92, blood pressure 142/68, pulse ox 98% on room air, oral temperature 98.8F. CBC is remarkable for hemoglobin 7.4, hematocrit 23.5, MCV 71, platelets 455. CMP is essentially unremarkable. INR is 0.9. UA shows small leukocyte esterase, 6-8 WBCs, negative occult blood. Patient's hemoglobin today is 7.4. He is hemodynamically stable. His stool is heme positive and brown. Apparently his hemoglobin in June was 11. He is on aspirin and Plavix. He will be transfused 2 units of PRBCs and admitted for further treatment and evaluation. He was consented for blood transfusion. He was made aware of all findings and is amenable to this plan. Case discussed with hospitalist Dr. Falk who will admit the patient to the hospitalist service. [facility]pt Point of Care Internal Pos. & Neg. Controls: Passed Fecal Specimen Occult Blood: Positive Comment Heme positive, brown stool. Diagnosis Primary Impression: Symptomatic anemia Additional Impression: GI bleed Qualified Codes: K92.2 - Gastrointestinal hemorrhage, unspecified Admitting Information Admitting Physician Requests: Admit Anurag Zamora MD Nov 04, 2017 20:46
[2017-11-04 21:09] LABS: BILIRUBIN, URINE NEG (NEG); BLOOD, URINE NEG (NEG); GLUCOSE,URINE NEG (NEG); KETONE, URINE NEG (NEG); NITRITE,URINE NEG (NEG); URINE COLOR YELLOW (YELLW/STRAW); URINE LEUKOCYTE ESTERASE SMALL (NEG)
[2017-11-04] MEDS ORDERED: CLOP75TA PO (21:10)
[2017-11-04 21:16] LABS: AUTOMATED NEUTROPHIL # 3.7 TH/MM3 (1.8-7.7); BASOPHIL # 0.1 TH/MM3 (0-0.2); BASOPHIL % 1.5 % (0.0-2.0); EOSINOPHIL # 1.3 TH/MM3 (0-0.4); EOSINOPHIL % 16.6 % (0.0-4.0); HEMATOCRIT 23.5 % (39.0-51.0); HEMOGLOBIN 7.4 GM/DL (13.0-17.0); LYMPH % 22.6 % (9.0-44.0); LYMPHOCYTE # 1.8 TH/MM3 (1.0-4.8); MEAN CORPUSCULAR HEMOGLOBIN 22.4 PG (27.0-34.0); MEAN CORPUSCULAR HGB CONC 31.5 % (32.0-36.0); MEAN PLATELET VOLUME 7.8 FL (7.0-11.0); MONO % 10.9 % (0.0-8.0); MONOCYTE # 0.9 TH/MM3 (0-0.9); NEUT % 48.4 % (16.0-70.0); PLATELET COUNT 454 TH/MM3 (150-450); RED BLOOD COUNT 3.31 MIL/MM3 (4.50-5.90); RED CELL DISTRIBUTION WIDTH 18.6 % (11.6-17.2); WHITE BLOOD COUNT 7.8 TH/MM3 (4.0-11.0)
[2017-11-04 21:22] LABS: CHLORIDE 101 MEQ/L (98-107); SODIUM (NA) 133 MEQ/L (136-145)
[2017-11-04 21:26] LABS: ALBUMIN 3.3 GM/DL (3.4-5.0); BICARBONATE 24.6 MEQ/L (21.0-32.0); BLOOD UREA NITROGEN 10 MG/DL (7-18); CALCIUM 8.4 MG/DL (8.5-10.1); GLUCOSE,RANDOM 119 MG/DL (74-106); RBC, URINE 0-2 /hpf (0-3); SQUAMOUS EPITHELIAL CELL URINE 0-5 /hpf (0-5)
[2017-11-04 21:27] LABS: INTERNATIONAL NORMALIZED RATIO 0.9 RATIO; PROTHROMBIN TIME - PATIENT 9.6 SEC (9.8-11.6)
[2017-11-04 21:28] LABS: OVALOCYTES 1+ (NORMAL); TEARDROP RBCS 1+ (NORMAL)
[2017-11-04 21:29] LABS: ALT (GPT) 25 U/L (12-78); AST (GOT) 23 U/L (15-37); CREATININE 0.61 MG/DL (0.60-1.30); GLOMERULAR FILTRATION RATE 132 ML/MIN (>89)
[2017-11-04 21:31] LABS: TOTAL BILIRUBIN ADULT 0.1 MG/DL (0.2-1.0); TOTAL PROTEIN 7.1 GM/DL (6.4-8.2)
[2017-11-04 21:32] LABS: ALKALINE PHOSPHATASE 70 U/L (45-117)
[2017-11-04 21:41] VITALS: BP 126/70; PULSE 79; RESP 14; O2SAT 95
[2017-11-04] MEDS ORDERED: SODIUM CHLOR 0.9% 250 ML INJ 250 ML IV ONE (21:45)
[2017-11-04] MEDS ORDERED: PANTOPRAZOLE SODIUM 40 MG VIAL IV PUSH SCH (22:00)
[2017-11-04] MEDS ORDERED: ONDANSETRON HCL 4 MG/2 ML VIAL IVP PRN (22:00)
[2017-11-04] MEDS ORDERED: SODIUM CHLORIDE 0.9% FLUSH 10 ML FLUSH IV FLUSH PRN (22:00)
[2017-11-04] MEDS ORDERED: NALOXONE HCL 0.4 MG/ML AMP IV PUSH PRN (22:00)
[2017-11-04] MEDS ORDERED: SENNOSIDES 8.6 MG TAB PO PRN (22:00)
[2017-11-04] MEDS ORDERED: MAGNESIUM HYDROXIDE SUSP 30 ML CUP PO PRN (22:00)
[2017-11-04] MEDS ORDERED: LACTULOSE SYRUP 20 GM/30 ML CUP PO PRN (22:00)
[2017-11-04] MEDS ORDERED: BISACODYL 10 MG SUPP RECTAL PRN (22:00)
[2017-11-04] MEDS ORDERED: ACETAMINOPHEN 325 MG TAB PO PRN (22:00)
[2017-11-04] MEDS: SODIUM CHLOR 0.9% 1000 ML INJ 1,000 ML IV SCH (22:36)
[2017-11-05] VITALS (9 sets, daily range): BP systolic 118–155; BP diastolic 56–90; PULSE 70–97; RESP 16–20; TEMP 96.6–98.6; O2SAT 95–99
[2017-11-05] MEDS ORDERED: DOCUSATE SODIUM 50 MG/SENNA 8.6 MG TAB PO SCH (09:00)
[2017-11-05] MEDS ORDERED: SODIUM CHLORIDE 0.9% FLUSH 10 ML FLUSH IV FLUSH SCH (09:00)
[2017-11-05] MEDS: SODIUM CHLOR 0.9% 1000 ML INJ 1,000 ML IV SCH (12:18)
--- NOTE | 2017-11-05 12:40 | HHI.DCPOC ---
Discharge Care Plan Diagnosis: (1) GI bleed (2) Symptomatic anemia (3) Diabetes mellitus, type 2 Goals to Promote Your Health * To prevent worsening of your condition and complications * To maintain your health at the optimal level Directions to Meet Your Goals Take your medications as prescribed Follow your dietary instruction Follow activity as directed Keep your appointments as scheduled Take your immunizations and boosters as scheduled If your symptoms worsen call your PCP, if no PCP go to Urgent Care Center or Emergency Room Smoking is Dangerous to Your Health. Avoid second hand smoke Call the 24-hour hour crisis hotline for domestic abuse at Stefanie Paiz MD Nov 05, 2017 12:39
--- NOTE | 2017-11-05 12:46 | HHI.HP ---
[facility] Admission Diagnosis Symptomatic anemia, GI bleed Diagnoses: Chief Complaint: Fatigue with abnormal results per primary care doctor Travel History International Travel<30 Days: No Contact w/Intl Traveler <30 Da: No Traveled to Known Affected Are: No History of Present Illness This patient is a 67-year-old male with a history of COPD and stroke on Plavix and aspirin. Patient says that he is feeling very fatigued and was noted to have some abnormal labs and his primary care doctor's office. His hemoglobin was 7.8 came to the emergency room. Patient noted no bleeding and no previous trouble with anemia. Patient has had hemoglobin in the emergency room here which is about 7.9 as well. Hemoccult was positive also. Patient has been transfused 2 units of packed red blood cells. He feels about the same. He would like to follow-up with his primary doctor for further evaluation and I think this is reasonable given the patient's clinical status and appropriate follow-up. Review of Systems Constitutional: COMPLAINS OF: Fatigue, DENIES: Diaphoretic episodes, Fever, Weight gain, Weight loss, Chills, Dizziness, Change in appetite, Night Sweats Endocrine: DENIES: Heat/cold intolerance, Polydipsia, Polyuria, Polyphagia Eyes: DENIES: Blurred vision, Diplopia, Eye inflammation, Eye pain, Vision loss , Photosensitivity, Double Vision Ears, nose, mouth, throat: DENIES: Tinnitus, Hearing loss, Vertigo, Nasal discharge, Oral lesions, Throat pain, Hoarseness, Ear Pain, Running Nose, Epistaxis, Sinus Pain, Toothache, Odynophagia Respiratory: DENIES: Apneas, Cough, Snoring, Wheezing, Hemoptysis, Sputum production, Shortness of breath Cardiovascular: DENIES: Chest pain, Palpitations, Syncope, Dyspnea on Exertion , PND, Lower Extremity Edema, Orthopnea, Claudication Gastrointestinal: DENIES: Abdominal pain, Black stools, Bloody stools, Constipation, Diarrhea, Nausea, Vomiting, Difficulty Swallowing, Anorexia Genitourinary: DENIES: Sexual dysfunction, Urinary frequency, Urinary incontinence, Urgency, Hematuria, Dysuria, Nocturia, Penile Discharge, Testicular Pain, Testicular Swelling Musculoskeletal: DENIES: Joint pain, Muscle aches, Stiffness, Joint Swelling, Back pain, Neck pain Integumentary: DENIES: Abnormal pigmentation, Nail changes, Pruritus, Rash Hematologic/lymphatic: DENIES: Bruising, Lymphadenopathy Immunologic/allergic: DENIES: Eczema, Urticaria Neurologic: DENIES: Abnormal gait, Headache, Localized weakness, Paresthesias, Seizures, Speech Problems, Tremor, Poor Balance Psychiatric: DENIES: Anxiety, Confusion, Mood changes, Depression, Hallucinations, Agitation, Suicidal Ideation, Homicidal Ideation, Delusions Except as stated in HPI: all other systems reviewed are Neg Past Family Social History Past Medical History Lipidemia History of CVA COPD Past Surgical History Prostate surgery Implanted loop recorder History of bladder and prostate cancer Reported Medications Reviewed in the EMR Allergies: Coded Allergies: lisinopril (Unverified Allergy, Severe, 11/04/17) Active Ordered Medications Reviewed in the EMR Family History Mother 2 weeks ago at age 86 Father at 78 from dementia Social History No current alcohol dependency Smokes a half a pack a day, is Physical Exam Vital Signs Vital Signs Date Time Temp Pulse Resp B/P (MAP) Pulse Ox O2 Delivery O2 Flow Rate FiO2 11/05/17 10:46 98.6 70 18 144/68 99 11/05/17 10:05 98.5 76 18 149/90 11/05/17 09:50 98.6 73 18 155/80 11/05/17 08:00 97.5 81 16 138/71 (93) 96 11/05/17 04:00 96.9 84 18 128/68 (88) 95 11/05/17 03:39 96.9 84 18 128/68 95 11/05/17 03:24 97.9 97 20 144/83 98 11/05/17 00:00 96.6 85 18 118/56 (76) 96 11/04/17 23:01 11/04/17 21:41 79 14 126/70 (88) 95 Room Air 11/04/17 21:02 Room Air 11/04/17 20:20 98.8 92 18 142/68 (92) 98 Physical Exam GENERAL: This is a well-nourished, well-developed patient, in no apparent distress. SKIN: No rashes, ecchymoses or lesions. Cool and dry. HEAD: Atraumatic. Normocephalic. No temporal or scalp tenderness. EYES: Pupils equal round and reactive. Extraocular motions intact. No scleral icterus. No injection or drainage. ENT: Nose without bleeding, purulent drainage or septal hematoma. Throat without erythema, tonsillar hypertrophy or exudate. Uvula midline. Airway patent. NECK: Trachea midline. No JVD or lymphadenopathy. Supple, nontender, no meningeal signs. CARDIOVASCULAR: Regular rate and rhythm without murmurs, gallops, or rubs. RESPIRATORY: Clear to auscultation. Breath sounds equal bilaterally. No wheezes , rales, or rhonchi. GASTROINTESTINAL: Abdomen soft, non-tender, nondistended. No hepato-splenomegaly , or palpable masses. No guarding. MUSCULOSKELETAL: Extremities without clubbing, cyanosis, or edema. No joint tenderness, effusion, or edema noted. No calf tenderness. Negative Homans sign bilaterally. NEUROLOGICAL: Awake and alert. Cranial nerves II through XII intact. Motor and sensory grossly within normal limits. Five out of 5 muscle strength in all muscle groups. Normal speech. Laboratory Laboratory Tests Test 11/04/17 20:55 White Blood Count 7.8 Red Blood Count 3.31 Hemoglobin 7.4 Hematocrit 23.5 Mean Corpuscular Volume 71.0 Mean Corpuscular Hemoglobin 22.4 Mean Corpuscular Hemoglobin Concent 31.5 Red Cell Distribution Width 18.6 Platelet Count 454 Mean Platelet Volume 7.8 Neutrophils (%) (Auto) 48.4 Lymphocytes (%) (Auto) 22.6 Monocytes (%) (Auto) 10.9 Eosinophils (%) (Auto) 16.6 Basophils (%) (Auto) 1.5 Neutrophils # (Auto) 3.7 Lymphocytes # (Auto) 1.8 Monocytes # (Auto) 0.9 Eosinophils # (Auto) 1.3 Basophils # (Auto) 0.1 CBC Comment AUTO DIFF Differential Comment AUTO DIFF CONFIRMED Platelet Estimate HIGH Platelet Morphology Comment NORMAL Tear Drop Cells 1+ Ovalocytes 1+ Prothrombin Time 9.6 Prothromb Time International Ratio 0.9 Activated Partial Thromboplast Time 21.7 Urine Color YELLOW Urine Turbidity CLEAR Urine pH 6.0 Urine Specific [place] LESS/EQUAL 1.005 Urine Protein NEG Urine Glucose (UA) NEG Urine Ketones NEG Urine Occult Blood NEG Urine Nitrite NEG Urine Bilirubin NEG Urine Urobilinogen 0.2 Urine Leukocyte Esterase SMALL Urine RBC 0-2 Urine WBC 6-8 Urine Squamous Epithelial Cells 0-5 Urine Bacteria NONE Microscopic Urinalysis Comment CULT NOT INDICATED Blood Urea Nitrogen 10 Creatinine 0.61 Random Glucose 119 Total Protein 7.1 Albumin 3.3 Calcium Level 8.4 Alkaline Phosphatase 70 Aspartate Amino Transf (AST/SGOT) 23 Alanine Aminotransferase (ALT/SGPT) 25 Total Bilirubin 0.1 Sodium Level 133 Potassium Level 3.5 Chloride Level 101 Carbon Dioxide Level 24.6 Anion Gap 7 Estimat Glomerular Filtration Rate 132 Lipase 67 Result Diagram: 11/04/17205411/04/172054 Assessment and Plan Problem List: (1) Diabetes mellitus, type 2 ICD Code: E11.9 - Type 2 diabetes mellitus without complications Status: Chronic Plan: Continue home medications (2) Symptomatic anemia ICD Code: D64.9 - Anemia, unspecified Status: Acute Plan: Status post transfusion 2 units of packed red blood cells DC aspirin, continue Plavix (3) GI bleed ICD Code: K92.2 - Gastrointestinal hemorrhage, unspecified Status: Acute Plan: This is mild Continue with Plavix, hold aspirin Follow-up with gastrointestinal doctor as an outpatient Continue plans for transfusion Assessment and Plan Discharge home Activity unrestricted Gastroenterology follow-up as an outpatient for possible endoscopy DC aspirin and continue Plavix Problem Qualifiers (1) GI bleed: Qualified Codes: K92.2 - Gastrointestinal hemorrhage, unspecified Stefanie Paiz MD Nov 05, 2017 12:46
[2017-11-05 14:20] LABS: BASOPHIL # 0.1 TH/MM3 (0-0.2); BASOPHIL % 0.9 % (0.0-2.0); EOSINOPHIL # 1.1 TH/MM3 (0-0.4); EOSINOPHIL % 17.8 % (0.0-4.0); HEMATOCRIT 31.8 % (39.0-51.0); HEMOGLOBIN 9.3 GM/DL (13.0-17.0); LYMPH % 17.5 % (9.0-44.0); LYMPHOCYTE # 1.1 TH/MM3 (1.0-4.8); MEAN CELL VOLUME 73.5 FL (80.0-100.0); MEAN CORPUSCULAR HEMOGLOBIN 21.5 PG (27.0-34.0); MEAN CORPUSCULAR HGB CONC 29.3 % (32.0-36.0); MEAN PLATELET VOLUME 7.6 FL (7.0-11.0); MONO % 13.1 % (0.0-8.0); MONOCYTE # 0.8 TH/MM3 (0-0.9); NEUT % 50.7 % (16.0-70.0); PLATELET COUNT 454 TH/MM3 (150-450); RED BLOOD COUNT 4.32 MIL/MM3 (4.50-5.90); RED CELL DISTRIBUTION WIDTH 17.8 % (11.6-17.2); WHITE BLOOD COUNT 6.1 TH/MM3 (4.0-11.0)
[2017-11-05 14:31] LABS: BICARBONATE 26.6 MEQ/L (21.0-32.0); CALCIUM 8.6 MG/DL (8.5-10.1); CREATININE 0.84 MG/DL (0.60-1.30)
== END 2017-11-05 15:10 | disposition home or self-care (01) ==
LOC: PHED 20:17 → INTOOBSV 21:54 → PHEDA 21:54 → PH3A 22:58
PROVIDERS: ADMIT Hospitalist; ATTEND Hospitalist
DX: D64.9 Anemia, unspecified (principal); K92.2 Gastrointestinal hemorrhage, unspecified; E11.9 Type 2 diabetes mellitus without complications; R53.1 Weakness; G89.29 Other chronic pain; M54.9 Dorsalgia, unspecified; I10 Essential (primary) hypertension; J44.9 Chronic obstructive pulmonary disease, unspecified; E78.5 Hyperlipidemia, unspecified; F17.210 Nicotine dependence, cigarettes, uncomplicated; Z79.01 Long term (current) use of anticoagulants; Z92.21 Personal history of antineoplastic chemotherapy; Z86.73 Personal history of transient ischemic attack (TIA), and cerebral infarction without residual deficits; Z85.51 Personal history of malignant neoplasm of bladder; Z85.46 Personal history of malignant neoplasm of prostate
CPT/HCPCS: 36430; 80048; 80053; 81001; 83690; 85025; 85610; 85730; 86850; 86900; 86901; 86920; 99285; C9113; G0378; J7030; P9016